=== PATIENT | male | born 1935 | race Caucasian/White ===

== ENCOUNTER 2018-12-24 03:31 | Inpatient (IN) | payer MEDICARE ==
[~2018-12-24] VITALS: Ht 182.9 cm; Wt 83.5 kg
[~2018-12-24 03:31] MED LIST: ASPIR 8181 MG; ATENOLOL100 MG; BICALUTAMIDE50 MG; CIALIS5 MG; COLACE100 MG PO; DALIRESP500 MCG; FLAGYL250 MG PO; GLIMEPIRIDE2 MG PO; LEVAQUIN500 MG PO; LISINOPRIL10 MG PO; NIFEDIPINE ER30 M1; PLAVIX75 MG PO; PROAIR HFA INH8.5 GM; TEMAZEPAM15 MG; ULTRAM50 MG PO
--- OUTSIDE RECORDS SUMMARY | 2018-12-24 03:33 | XMS REPORT | Clinical Summary ---
Author Author ANN [facility] Address Unknown Phone Unavailable Care Team Providers Care Weaving Machine Operator Name Role Phone Sharpless PCP Allergies Comments Active Allergy Reactions Severity Noted Date Neck/throat swelling Sitagliptin Swelling High 01/29/2016 Medications End Date Status Medication Sig Dispensed Refills Start Date Active atenolol (TENORMIN) 100 Take 100 mg 0 MG tablet by mouth daily. Active glimepiride (AMARYL) 2 MG Take 2 mg by 0 tablet mouth every morning before breakfast. Active NIFEdipine (PROCARDIA-XL) Take 90 mg by 0 90 MG (OSM) 24 hr tablet mouth daily. Active atorvastatin (LIPITOR) 40 Take 40 mg by 0 MG tablet mouth daily. Active lisinopril Take 40 mg by 0 (PRINIVIL,ZESTRIL) 40 MG mouth daily. tablet Active temazepam (RESTORIL) 15 Take 15 mg by 0 mg capsule mouth every night as needed for Sleep. Active fluticasone-salmeterol Inhale 1 puff 0 (ADVAIR) 500-50 mcg/dose by mouth via diskus inhaler inhaler 2 (two) times daily. Active albuterol (PROVENTIL) 2.5 Take 2.5 mg 0 mg/0.5 mL Nebu nebulizer by solution nebulization. Active Missing or Non-Formulary Pro aire 0 Medication inhaler 2 puffs as needed . Active esomeprazole (NEXIUM) 40 Take 40 mg by 0 MG capsule mouth daily. Active cyanocobalamin (VITAMIN Inject 1,000 0 B-12) 1,000 mcg/mL mcg injection intramuscular ly once. Active sucralfate (CARAFATE) 1 Take 1 g by 0 gram tablet mouth 4 (four) times daily. Active bicalutamide (CASODEX) 50 Take 50 mg by 0 MG tablet mouth 3 (three) times daily. Active aspirin 325 MG EC tablet Take 325 mg 0 by mouth daily. Active Problems Not on file Social History Date Tobacco Use Types Packs/Day Years Used Former Smoker Comments: >10 yrs ago Alcohol Use Drinks/Week oz/Week Comments Yes 1 Glasses of 0.6 wine Sex Assigned at Date Recorded Not on file Industry Job Start Date Occupation Not on file Not on file Not on file Travel End Travel History Travel Start No recent travel history available. Last Filed Vital Signs Not on file Plan of Treatment Not on file Results Not on fileafter 12/23/2017 Insurance Payer Benefit Subscriber ID Type Phone Address Plan / Group AETNA - MEDICARE MGD CARE AETNA xxxxxxxx [facility] [phone] [address] [place] [address] O POS
[2018-12-24] MEDS ORDERED: VANCOMYCIN 1GM/NS 250 ML 250 ML IV STA (04:23)
[2018-12-24] MEDS ORDERED: ACETAMINOPHEN 1000 MG/100 ML IV STA (04:23)
[2018-12-24] MEDS ORDERED: CEFEPIME 1GM/NS 0.9% 50 ML 50 ML IV STA (04:23)
[2018-12-24] MEDS ORDERED: SODIUM CHLORIDE 0.9% 1000ML 1,000 ML IV STA (04:23)
--- NOTE | 2018-12-24 05:19 | Diagnostic Imaging Report ---
Examination: Single AP view of the chest. COMPARISON: None. INDICATION: Weakness, shaking IMPRESSION: 1. Lines and Tubes: None 2. Lungs are well-inflated. Left basilar atelectatic changes. No consolidation or effusion. 3. Cardiomediastinal silhouette is normal. Pulmonary vasculature is normal. 4. No acute bony abnormalities. Signed by: Dr. Umberto Faith M.D. on 12/24/2018 5:16 AM
[2018-12-24 05:40] LABS: BASOPHILS % 0.5 % (0.0-1.0); EOSINOPHILS # (AUTO) 0.2 (0.0-0.4); EOSINOPHILS % 2.6 % (0.0-6.0); HEMOGLOBIN 11.1 g/dL (14.0-18.0); LYMPHOCYTES # (AUTO) 1.1 (1.0-3.2); LYMPHOCYTES % 12.3 % (18.0-39.1); MEAN CORPUSCULAR HEMOGLOBIN 28.2 pg (28-32); MEAN CORPUSCULAR HGB CONC 32.6 g/dL (31-35); MEAN CORPUSCULAR VOLUME 86.5 fL (81-99); MONOCYTES # (AUTO) 0.7 (0.2-0.8); NEUTROPHILS # (AUTO) 6.6 (2.1-6.9); NEUTROPHILS % 76.3 % (38.7-80.0); PLATELET COUNT 218 x10e3/uL (140-360); RED BLOOD COUNT 3.93 x10e6/uL (4.3-5.7); RED CELL DISTRIBUTION WIDTH 15.9 % (11.7-14.4)
[2018-12-24 06:02] LABS: ALBUMIN 2.8 g/dL (3.5-5.0); ALBUMIN/GLOBULIN RATIO 0.8 (0.8-2.0); ANION GAP 10.5 mmol/L (8-16); CALCIUM 8.5 mg/dL (8.4-10.2); CREATININE, SERUM 1.3 mg/dL (0.72-1.25); POTASSIUM 4.5 mmol/L (3.5-5.1)
[2018-12-24 06:12] LABS: CREATINE KINASE MB 1.3 ng/mL (0-5.0)
[2018-12-24 06:22] LABS: B-TYPE NATRIURETIC PEPTIDE2 190.6 pg/mL (0-100)
[2018-12-24] MEDS ORDERED: SODIUM CHLORIDE 0.9% 1000ML 1,000 ML IV SCH (08:45)
[2018-12-24 08:47] LABS: CLARITY,URINE CLOUDY (CLEAR); COLOR,URINE YELLOW (YELLOW); LEUKOCYTE ESTERASE ,URINE 1+ (NEGATIVE); PROTEIN,URINE DIPSTICK 1+ (NEGATIVE)
[2018-12-24 08:48] LABS: BILIRUBIN,URINE NEGATIVE (NEGATIVE); KETONES,URINE NEGATIVE (NEGATIVE); NITRITE,URINE NEGATIVE (NEGATIVE); URINE UROBILINOGEN 0.2 mg/dL (0.2 - 1)
--- OUTSIDE RECORDS SUMMARY | 2018-12-24 08:52 | XMS REPORT | Clinical Summary ---
Author Author ANN [facility] Address Unknown Phone Unavailable Care Team Providers Care Interactive Media Director Name Role Phone Sharpless PCP Allergies Comments [...] AETNA - MEDICARE MGD CARE AETNA xxxxxxxx [facility] [phone] [address] [place] [address] O POS
--- OUTSIDE RECORDS SUMMARY | 2018-12-24 08:52 | XMS REPORT ---
Author Author [facility] Address Unknown Phone Unavailable Care Team Providers Care Ludlow Machine Operator Name Role Phone Maciej HERNANDEZ Unavailable Unavailable Problems This patient has no known problems. Allergies, Adverse Reactions, Alerts This patient has no known allergies or adverse reactions. Medications This patient has no known medications. Results Test Description Test Time Test Comments Text Results Atomic Results Result Comments CHEST SINGLE (PORTABLE) 2018-12-24 05:15:00 [place] [address] Patient Name: MALIA GONZALEZ MR #: [id number] : 1935 Age/Sex: 83/M Req #: [id number] Adm Physician: Ordered by: TERRANCE HERNANDEZ MD Report #: [id number] Location: ER Room/Bed: Procedure: [id number] DX/CHEST SINGLE (PORTABLE) Exam Date: 12/24/18 Exam Time: 0450 REPORT STATUS: Signed Examination: Single AP view of the chest. COM PARISON: None. INDICATION: Weakness, shaking IMPRESSION: 1. Lines and Tubes: None 2. Lungs are well-inflated. Left basilar atelectatic changes. No consolidation or effusion. 3. Cardiomediastinal silhouette is normal. Pulmonary vasculature is normal. 4. No acute bony abnormalities. Signed by: Dr. Sirena Shook M.D. on 12/24/2018 5:16 AM Dictated By: SIRENA SHOOK MD 5 Transcribed By: GENNA on 12/24/18515 COPY TO: TERRANCE HERNANDEZ MD
[2018-12-24 09:00] LABS: BACTERIA,URINE RARE /HPF; EPITHELIAL CELLS,URINE RARE /LPF; WBC,URINE (MAN) 21-50 /HPF (0-5)
[2018-12-24 09:36] LABS: INFLUENZAE A&B ANTIGEN (RAPID) NEGATIVE (NEGATIVE); STREPTOCOCCUS GRP A ANTIGEN NEGATIVE (NEGATIVE)
[2018-12-24] MEDS ORDERED: ALBUTEROL/IPRATROPIUM 3 ML NEB NEB ONE (09:45)
[2018-12-24] MEDS ORDERED: ALBUTEROL/IPRATROPIUM 3 ML NEB NEB PRN (09:45)
[2018-12-24] MEDS ORDERED: TRAMADOL HCL 50 MG TAB PO PRN ×2 (10:30→12:00)
--- NOTE | 2018-12-24 10:31 | NUR ---
HERE SEEING PT
[2018-12-24] MEDS ORDERED: CEFEPIME 1GM/NS 0.9% 50 ML 50 ML IV SCH (10:45)
[2018-12-24] MEDS: ALBUTEROL/IPRATROPIUM 3 ML NEB NEB SCH ×4 (11:00→23:41)
[2018-12-24] MEDS ORDERED: TEMAZEPAM 15 MG CAP PO PRN (12:00)
[2018-12-24 12:37] VITALS: BP 112/56
[2018-12-24 13:21] VITALS: BP 112/56
--- NOTE | 2018-12-24 15:02 | History and Physical ---
Harley Coley is an 83-year-old male patient, presented to the emergency room with complaints of altered mental status and fever. HISTORY OF PRESENT ILLNESS: Mr. Harley Coley is an 83-year-old male patient with severe comorbidities and he has had frequent hospitalization due underlying cancer and severe COPD. The patient was recently at [facility] [place] with severe COPD and pneumonia. Then, the patient went home and was doing fairly well and subsequently, two days ago, the patient started feeling weak and his mental alertness went down and the patient was having fever of 102 and the patient was evaluated in the emergency room and found to have UTI with urosepsis and altered mental status. 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 The patient also has foot drop. SOCIAL HISTORY: Denies smoking. Denies using alcohol or illic REVIEW OF SYSTEMS: Fever, altered mental status, cough, shortness of breath, weakness, and dizziness. PHYSICAL EXAMINATION: GENERAL: He is elderly male patient, lying in bed, not in any acute distress. VITAL SIGNS: Temperature 102 HEENT: Normocephalic, atraumatic. NECK: No JVD. No lymphadenopathy. LUNGS: Bilateral equal fair entry. Basal rales. HEART: S1 and S2, regular. Systolic murmur present. ABDOMEN: Soft. Bowel sounds are diminished. NEUROLOGIC: No new focal neurological deficit. ADMITTING INPATIENT DIAGNOSES: Urinary tract infection with urosepsis and altered mental status _ blood pressure readings were low. Chronic obstructive pulmonary disease , hyperlipidemia, diabetes mellitus, metastatic prostate cancer, and severe chronic obstructive pulmonary disease. PLAN: The patient will be admitted with above diagnoses. We will give the patient IV antibiotics we will obtain ID consultation and we will obtain the blood cultures. MD GAYLA Piña/REBECCA /[id number] DAVID
[2018-12-24] MEDS: ALBUTEROL SULFATE HFA 8GM INHALATION AEROSOL INH SCH ×3 (15:13→23:41)
[2018-12-24] MEDS ORDERED: ATORVASTATIN CA20 MG PO (15:20)
[2018-12-24] MEDS ORDERED: ASPIRIN325 MG PO (15:20)
[2018-12-24] MEDS ORDERED: PANTOPRAZOLE SO40 MG PO (15:20)
[2018-12-24] MEDS ORDERED: BENADRYL25 M1 PO (15:20)
[2018-12-24] MEDS ORDERED: METFORMIN HCL500 M1 PO (15:20)
[2018-12-24] MEDS ORDERED: ZYRTEC10 M3 PO (15:20)
[2018-12-24] MEDS ORDERED: LOSARTAN POTASS25 MG PO (15:20)
[2018-12-24] MEDS: SODIUM CHLORIDE 0.9% 1000ML 1,000 ML IV SCH ×3 (15:22→21:05)
[2018-12-24 15:23] VITALS: BP 112/56
[2018-12-24 16:20] VITALS: BP 117/56
[2018-12-24] MEDS ORDERED: DOCUSATE SODIUM 100 MG CAP PO SCH (17:00)
[2018-12-24] MEDS: DOCUSATE SODIUM 100 MG CAP PO SCH (17:09)
[2018-12-24] MEDS: CEFEPIME 1GM/NS 0.9% 50 ML 50 ML IV SCH (17:09)
[2018-12-24] MEDS: GLIMEPIRIDE 2 MG TAB PO SCH (17:09)
--- NOTE | 2018-12-24 17:10 | NUR ---
Dr. Ford seeing the patient for Dr. Arjun Lyn. No new orders received.
[2018-12-24 19:53] VITALS: BP 111/58
[2018-12-24] MEDS ORDERED: TEMAZEPAM 15 MG CAP PO SCH (21:00)
[2018-12-24 21:32] VITALS: BP 111/58
[2018-12-25] VITALS (8 sets, daily range): BP systolic 119–140; BP diastolic 58–66
--- NOTE | 2018-12-25 00:35 | Consultation ---
DATE OF CONSULTATION: HISTORY OF PRESENT ILLNESS: The patient was seen and examined. Chart was reviewed. The patient was seen at the request of Dr. Regulo Lyn. The patient is an 83-year-old gentleman, who was admitted to the hospital with increasing shortness of breath. The patient came to the hospital yesterday and he has history of COPD and pneumonia and he started feeling weak. His mental status was down. He had a fever of 102. The patient was started to have urinary tract infection and possibly flu-like symptoms. The patient's called in ambulance and he was brought into the hospital. When he was admitted, he was treated with IV antibiotics and fluids and he feels already quite a bit better now than before. MEDICATIONS: The patient's current medications include cefepime, glimepiride, docusate, albuterol, lisinopril, tramadol, temazepam, atenolol, nifedipine, Casodex, Plavix, aspirin, and DuoNeb. PAST MEDICAL HISTORY: The patient has past medical history significant for COPD, prostate cancer, diabetes mellitus, hypertension, and kidney disease. PAST SURGICAL HISTORY: He has appendectomy, cholecystectomy, and hernia repair before. FAMILY HISTORY: The patient has family history of heart disease in the father and hypertension in the father. Mother also having hypertension, heart disease, and stroke. The patient's siblings have from cancer. He does have 2 brothers and 1 sister. He has number of siblings and children, has had some emphysema and stroke. SOCIAL HISTORY: The patient is . Lives with his . He is a nonsmoker, but did smoke in the past. He is retired at this time. He denies drug abuse. ALLERGIES: THE PATIENT IS ALLERGIC TO JANUVIA, LISINOPRIL, AND JUNIOR INHIBITOR. REVIEW OF SYSTEMS: NEUROLOGICAL: Denies passing out seizures. CARDIAC-GRAHAM: No chest pain. PULMONARY: He has mild shortness of breath, but he is stable. GI: No bleeding per rectum. : No dysuria or hematuria. Now, he has had some urinary tract symptoms before. He is feeling a little better, though he is still somewhat weak. PHYSICAL EXAMINATION: VITAL SIGNS: He is afebrile, pulse 69, respiratory rate 18, and blood pressure 117/56. HEENT: Atraumatic, normocephalic. NECK: Supple. He is on O2 by nasal cannula. CHEST: Clear. HEART: Normal. ABDOMEN: Soft. EXTREMITIES: Showed no cyanosis, clubbing, or edema. NEUROLOGIC: He was alert, awake, calm, and cooperative. LABORATORY DATA: White count was 8.7, hemoglobin 11.1, hematocrit 34.0, and platelet count was 218. The patient's chemistry showed BUN of 15, creatinine 1.3, glucose 200, sodium was 133, albumin was 2.8, and lipase was normal at 6. Urinalysis has 2+ blood, 1+ leuk esterase, 6-10 red blood cells, and 21-50 white blood cells. Serology showed influenza being negative. DIAGNOSTIC STUDIES: In terms of his imaging studies, chest x-ray showed no acute infiltrates. The patient had normal lungs with no consolidation or effusion. So far blood cultures are pending. ASSESSMENT AND PLAN: The patient seems to be doing well and is being treated for urinary tract infection. Pulmonary status seems to be improving as well. Clinically, the patient is improving and pulmonary status remain stable. We will continue current care. I do not have new recommendations at this time from pulmonary standpoint. The patient has been followed by Dr. Regulo Lyn and once we have urine cultures, we can make further recommendations, but for now, we will continue current care without any significant changes. The patient remains on O2. We will wean the O2 as required and continue supportive care. MD HAY Albright/REBECCA /[id number]
[2018-12-25] MEDS: ALBUTEROL/IPRATROPIUM 3 ML NEB NEB SCH ×6 (01:01→23:40)
[2018-12-25] MEDS: ALBUTEROL SULFATE HFA 8GM INHALATION AEROSOL INH SCH ×6 (01:02→22:00)
[2018-12-25] MEDS: SODIUM CHLORIDE 0.9% 1000ML 1,000 ML IV SCH ×3 (04:46→18:49)
[2018-12-25] MEDS: CEFEPIME 1GM/NS 0.9% 50 ML 50 ML IV SCH ×2 (04:46→17:00)
[2018-12-25 05:27] LABS: BASOPHILS % 0.1 % (0.0-1.0); EOSINOPHILS # (AUTO) 0.4 (0.0-0.4); EOSINOPHILS % 5.3 % (0.0-6.0); HEMATOCRIT 28.8 % (38.2-49.6); HEMOGLOBIN 9.3 g/dL (14.0-18.0); LYMPHOCYTES % 13.7 % (18.0-39.1); MEAN CORPUSCULAR HEMOGLOBIN 28.2 pg (28-32); MEAN CORPUSCULAR HGB CONC 32.3 g/dL (31-35); MEAN CORPUSCULAR VOLUME 87.3 fL (81-99); MONOCYTES # (AUTO) 0.7 (0.2-0.8); MONOCYTES % 9.9 % (4.4-11.3); NEUTROPHILS # (AUTO) 4.9 (2.1-6.9); NEUTROPHILS % 70.7 % (38.7-80.0); PLATELET COUNT 170 x10e3/uL (140-360); RED CELL DISTRIBUTION WIDTH 15.7 % (11.7-14.4)
--- NOTE | 2018-12-25 06:00 | NUR ---
PAGED DR. YOUNG REGARDING LISINOPRIL ORDER.
[2018-12-25 06:09] LABS: ALANINE AMINOTRANSFERASE 9 IU/L (0-55); ALBUMIN 2.3 g/dL (3.5-5.0); ALBUMIN/GLOBULIN RATIO 0.7 (0.8-2.0); ALKALINE PHOSPHATASE 52 IU/L (40-150); ANION GAP 10.2 mmol/L (8-16); BLOOD UREA NITROGEN 16 mg/dL (7-26); BUN/CREATININE RATIO 16 (6-25); CARBON DIOXIDE 26 mmol/L (22-29); CHLORIDE 104 mmol/L (98-107); EST GLOMERULAR FILTRATION RATE > 60 ML/MIN (60-); GLUCOSE 103 mg/dL (74-118); POTASSIUM 4.2 mmol/L (3.5-5.1); SODIUM 136 mmol/L (136-145)
[2018-12-25] MEDS ORDERED: LISINOPRIL 10 MG TAB PO SCH (09:00)
[2018-12-25] MEDS ORDERED: ATENOLOL 100 MG TAB PO SCH (09:00)
[2018-12-25] MEDS ORDERED: LISINOPRIL 20 MG TAB PO SCH (09:00)
[2018-12-25] MEDS: BICALUTAMIDE 50 MG TABLET PO SCH (09:01)
[2018-12-25] MEDS: ASPIRIN 81 MG CHEW TAB PO SCH (09:01)
[2018-12-25] MEDS: GLIMEPIRIDE 2 MG TAB PO SCH ×2 (09:01→17:00)
[2018-12-25] MEDS: CLOPIDOGREL BISULFATE 75 MG TAB PO SCH (09:02)
[2018-12-25] MEDS: DOCUSATE SODIUM 100 MG CAP PO SCH ×2 (09:02→17:00)
[2018-12-25] MEDS: NIFEDIPINE CR 30 MG TAB PO SCH (09:02)
[2018-12-25] MEDS: ATENOLOL 50 MG TAB PO SCH (09:03)
[2018-12-25] MEDS: TEMAZEPAM 15 MG CAP PO PRN (21:05)
[2018-12-26] VITALS (8 sets, daily range): BP systolic 125–166; BP diastolic 68–86
[2018-12-26] MEDS: SODIUM CHLORIDE 0.9% 1000ML 1,000 ML IV SCH ×3 (00:30→15:48)
[2018-12-26] MEDS: ALBUTEROL SULFATE HFA 8GM INHALATION AEROSOL INH SCH ×6 (02:00→22:00)
[2018-12-26] MEDS: ALBUTEROL/IPRATROPIUM 3 ML NEB NEB SCH ×6 (04:00→23:17)
[2018-12-26] MEDS: CEFEPIME 1GM/NS 0.9% 50 ML 50 ML IV SCH ×2 (04:40→17:31)
[2018-12-26] MEDS ORDERED: BENADRYL25 M1 PO (06:41)
[2018-12-26] MEDS: BICALUTAMIDE 50 MG TABLET PO SCH (08:23)
[2018-12-26] MEDS: DOCUSATE SODIUM 100 MG CAP PO SCH ×2 (08:23→17:29)
[2018-12-26] MEDS: CLOPIDOGREL BISULFATE 75 MG TAB PO SCH (08:23)
[2018-12-26] MEDS: GLIMEPIRIDE 2 MG TAB PO SCH ×2 (08:23→17:29)
[2018-12-26] MEDS: ASPIRIN 81 MG CHEW TAB PO SCH (08:23)
[2018-12-26] MEDS: ATENOLOL 50 MG TAB PO SCH (08:33)
[2018-12-26] MEDS: NIFEDIPINE CR 30 MG TAB PO SCH (08:33)
[2018-12-26] MEDS: TEMAZEPAM 15 MG CAP PO PRN (21:08)
[2018-12-27] VITALS (7 sets, daily range): BP systolic 134–152; BP diastolic 63–83
[2018-12-27] MEDS: ALBUTEROL SULFATE HFA 8GM INHALATION AEROSOL INH SCH ×6 (02:00→22:00)
[2018-12-27] MEDS: SODIUM CHLORIDE 0.9% 1000ML 1,000 ML IV SCH ×2 (02:45→23:32)
[2018-12-27] MEDS: ALBUTEROL/IPRATROPIUM 3 ML NEB NEB SCH ×6 (03:00→23:00)
[2018-12-27] MEDS: CEFEPIME 1GM/NS 0.9% 50 ML 50 ML IV SCH ×2 (04:13→16:47)
[2018-12-27 06:16] LABS: BASOPHILS % 0.3 % (0.0-1.0); EOSINOPHILS # (AUTO) 0.8 (0.0-0.4); EOSINOPHILS % 10.9 % (0.0-6.0); HEMATOCRIT 33.3 % (38.2-49.6); HEMOGLOBIN 10.8 g/dL (14.0-18.0); LYMPHOCYTES % 14.2 % (18.0-39.1); MEAN CORPUSCULAR HEMOGLOBIN 28.1 pg (28-32); MEAN CORPUSCULAR HGB CONC 32.4 g/dL (31-35); MEAN CORPUSCULAR VOLUME 86.7 fL (81-99); MONOCYTES # (AUTO) 0.7 (0.2-0.8); MONOCYTES % 9.7 % (4.4-11.3); NEUTROPHILS # (AUTO) 4.7 (2.1-6.9); NEUTROPHILS % 64.5 % (38.7-80.0); PLATELET COUNT 245 x10e3/uL (140-360); RED BLOOD COUNT 3.84 x10e6/uL (4.3-5.7); RED CELL DISTRIBUTION WIDTH 15.6 % (11.7-14.4)
[2018-12-27 06:51] LABS: ALANINE AMINOTRANSFERASE 12 IU/L (0-55); ALBUMIN 2.5 g/dL (3.5-5.0); ALBUMIN/GLOBULIN RATIO 0.6 (0.8-2.0); ALKALINE PHOSPHATASE 64 IU/L (40-150); ANION GAP 11.1 mmol/L (8-16); BLOOD UREA NITROGEN 9 mg/dL (7-26); BUN/CREATININE RATIO 10 (6-25); CALCIUM 8.9 mg/dL (8.4-10.2); CARBON DIOXIDE 27 mmol/L (22-29); CHLORIDE 103 mmol/L (98-107); CREATININE, SERUM 0.86 mg/dL (0.72-1.25); EST GLOMERULAR FILTRATION RATE > 60 ML/MIN (60-); GLUCOSE 124 mg/dL (74-118); POTASSIUM 4.1 mmol/L (3.5-5.1); SODIUM 137 mmol/L (136-145)
--- NOTE | 2018-12-27 09:00 | NUR ---
The pt. as received in bed awake and alert. He denies pain or discomfort at this time. The side rails are up times 2 and the bed is in low position.
--- NOTE | 2018-12-27 09:05 | NUR ---
IMM letter delivered and explained to pt. He verbalized understanding. Signed copy placed in chart. Copy placed in pt's transition of care folder.
[2018-12-27] MEDS: NIFEDIPINE CR 30 MG TAB PO SCH (09:29)
[2018-12-27] MEDS: DOCUSATE SODIUM 100 MG CAP PO SCH ×2 (09:29→16:47)
[2018-12-27] MEDS: CLOPIDOGREL BISULFATE 75 MG TAB PO SCH (09:29)
[2018-12-27] MEDS: ASPIRIN 81 MG CHEW TAB PO SCH (09:29)
[2018-12-27] MEDS: GLIMEPIRIDE 2 MG TAB PO SCH ×2 (09:29→16:47)
[2018-12-27] MEDS: ATENOLOL 50 MG TAB PO SCH (09:30)
--- NOTE | 2018-12-27 15:58 | Consultation ---
DATE OF CONSULTATION: 12/27/2018 REASON FOR CONSULTATION: Urosepsis. Thank you Dr. Lyn for asking me to see this patient. HISTORY OF PRESENT ILLNESS: The patient is an 83-year-old man, referred for urosepsis. He presented to the emergency department on 12/24/2018 with shaking chills and fever. Also, he recalls urinary urgency, incontinence, and stated that the thought that he was confused. In the emergency department, he was noted to have temperature of 102.9 degrees Fahrenheit, pulse rate 95, respiratory rate 22, blood pressure 126/55, and oxygen saturation 95% on 2 L of oxygen by nasal cannula. Initial laboratory studies showed blood leukocyte count of 8710 with 76.3% neutrophils, BUN 22, creatinine 1.3, and abnormal urinalysis. Chest x-ray showed no consolidation or effusion. PAST MEDICAL HISTORY: Diabetes mellitus type 2, hypertension, chronic obstructive pulmonary disease, and prostate cancer. PAST SURGICAL HISTORY: Cholecystectomy, abdominal aortic aneurysm repair, appendectomy, back surgery, right hip replacement, knee replacement and drop foot. ALLERGIES: LISINOPRIL. MEDICATIONS: The current antibiotic is Ceftin 1 g piggyback q.12 hours. IMMUNIZATION: The patient received pneumococcal vaccination in the past. FAMILY HISTORY: Noncontributory. SOCIAL HISTORY: He quit smoking cigarettes 10 years ago. Also, he quit drinking alcohol. REVIEW OF SYSTEMS: As per history of present illness. The patient reports improvement since admission and management. The fever subsided and also the urgency and incontinence subsided. He has baseline cough, which did not change. He denies nausea, vomiting, diarrhea, constipation, or abdominal pain. PHYSICAL EXAMINATION: GENERAL: In no acute distress and does not appear toxic. VITAL SIGNS: T-max 99.3, pulse 90, respiratory rate 20, and blood pressure 147/57, weight 184 pounds. HEENT: Normocephalic. There is no icterus or injection of the conjunctivae. There is no ear or nasal discharge. Moist oral mucosa. No pharyngeal erythema or exudate. NECK: Supple. No meningismus. LUNGS: Good air entry bilaterally. HEART: Normal S1 and S2. ABDOMEN: Soft and nontender. There is no costovertebral angle tenderness. EXTREMITIES: There is no edema, clubbing, or cyanosis. SKIN: There is no acute erythema. PRESCHOOL SPECIAL EDUCATION TEACHER: Awake, alert, and oriented to person, place, and time. LABORATORY AND DIAGNOSTICS: WBC 7,320, hemoglobin 10.8, platelets 245,000, neutrophils 64.5, lymphocytes 14.2, monocytes 9.7, eosinophils 10.9, basophils 0.3. BUN 9, creatinine 0.86, blood glucose 140. Blood culture, no growth. Urine cultures, also no growth. IMPRESSION: 1. Resolving sepsis, felt to be urinary tract infection. 2. Chronic obstructive pulmonary disease. 3. Prostate cancer. PLAN: 1. The patient may be switched to oral antibiotics tomorrow in preparation for discharge if he continues to improve. 2. PT as tolerated if not yet done. MD EVELIN Jensen/REBECCA /[id number]
--- NOTE | 2018-12-27 16:12 | NUR ---
SPOKE WITH PATIENT ABOUT REHAB POSSIBILITIES, SIGNED CHOICE FOR [facility], SENT INFORMATION AFTER SPEAKING WITH IMMANUEL. FOUND OUT THAT THIS PT HAS MEDICAID ONLY. SPOKE WITH OUR OP REHAB DEPARTMENT THEY DO NOT TAKE MEDICAID SPOKE WITH [facility] THEY DO NOT. WAS INFORMED THAT FOR THIS POLICY THEY WILL ONLY BE ABLE TO GET HOME HEALTH WITH LIMITED HOME PT TO COME TO HOUSE. WAS NOTIFIED THAT [facility] ARE PROVIDERS FOR THIS POLICY CALLED AND CONFIRMED THEY ARE IN NETWORK, FAXED CLINICALS FOR THEM TO SEE IF CAN GET SET UP FOR SERVICES, WAITING ON CONFIRMATION. WILL NOTIFY CHARO GAMBINO IF CAN MAKE IT HAPPEN.
--- NOTE | 2018-12-27 16:30 | NUR ---
SPOKE WITH [facility] WHOM STATES THAT HOME HEALTH WILL NOT WORK AND SHE ALSO STATES THATTHEY HAVE MEDICARE AMERIVANTAGE. SENT TO [facility] TO SEE WHAT BENEFITS ARE ABLE TO BE RUN.
--- NOTE | 2018-12-27 19:30 | NUR ---
Patient received lying in bed. AAO x 2. Patient had no complaints of pain. No signs of respiratory distress. Fall precautions implemented. Bed locked and in lowest position. Bed rails up x 2. Patient instructed to call for assistance when needed. Call light within reach.
[2018-12-27] MEDS: TEMAZEPAM 15 MG CAP PO PRN (22:56)
[2018-12-28] VITALS (9 sets, daily range): BP systolic 136–155; BP diastolic 64–74
[2018-12-28] MEDS: ALBUTEROL SULFATE HFA 8GM INHALATION AEROSOL INH SCH ×6 (02:00→22:00)
[2018-12-28] MEDS: ALBUTEROL/IPRATROPIUM 3 ML NEB NEB SCH ×6 (03:00→22:45)
[2018-12-28] MEDS: CEFEPIME 1GM/NS 0.9% 50 ML 50 ML IV SCH ×2 (05:06→17:00)
[2018-12-28] MEDS: CLOPIDOGREL BISULFATE 75 MG TAB PO SCH (09:24)
[2018-12-28] MEDS: ASPIRIN 81 MG CHEW TAB PO SCH (09:24)
[2018-12-28] MEDS: DOCUSATE SODIUM 100 MG CAP PO SCH ×2 (09:24→17:00)
[2018-12-28] MEDS: GLIMEPIRIDE 2 MG TAB PO SCH ×2 (09:24→17:00)
[2018-12-28] MEDS: NIFEDIPINE CR 30 MG TAB PO SCH (09:26)
[2018-12-28] MEDS: ATENOLOL 50 MG TAB PO SCH (09:27)
[2018-12-28] MEDS ORDERED: CEFUROXIME250 MG PO (09:39)
[2018-12-28] MEDS ORDERED: METHYLPREDNISOLONE SOD SUCC 40 MG/ML VIAL 1ML IV ONE (10:30)
--- NOTE | 2018-12-28 11:43 | Diagnostic Imaging Report ---
RIGHT ANKLE - 3 Images RIGHT FOOT - 3 Images HISTORY: Weakness, fever, pain COMPARISON: None available. FINDINGS: Bones: Diffusely decreased mineralization of the osseous structures limits bone detail. No acute displaced fracture. No aggressive osseous lesion. Small plantar calcaneal enthesophyte. Joints: Mild claw/hammer toe configuration of multiple toes, correlate with physical exam. Minimal scattered degenerative changes. Soft tissues: The soft tissues appear unremarkable. IMPRESSION: 1. No acute radiographic abnormality. 2. Minimal osteoarthrosis and chronic plantar calcaneal enthesopathy. 3. Osseous demineralization, recommend correlation with bone densitometry. Signed by: Dr. Kiryb Sy D.O., M.M.M. on 12/28/2018 11:40 AM
[2018-12-28] MEDS: COLCHICINE 0.6 MG TAB PO SCH (17:00)
[2018-12-28] MEDS: SODIUM CHLORIDE 0.9% 1000ML 1,000 ML IV SCH ×2 (17:23→23:00)
[2018-12-28] MEDS: TEMAZEPAM 15 MG CAP PO PRN (22:04)
[2018-12-29] VITALS: BP 127/70
[2018-12-29] MEDS: ALBUTEROL SULFATE HFA 8GM INHALATION AEROSOL INH SCH ×3 (02:00→08:50)
[2018-12-29] MEDS: ALBUTEROL/IPRATROPIUM 3 ML NEB NEB SCH ×4 (03:00→11:47)
[2018-12-29 05:00] VITALS: BP 126/70
[2018-12-29] MEDS: CEFEPIME 1GM/NS 0.9% 50 ML 50 ML IV SCH (05:12)
[2018-12-29 05:24] LABS: BASOPHILS % 0.2 % (0.0-1.0); EOSINOPHILS % 0.4 % (0.0-6.0); HEMATOCRIT 30.8 % (38.2-49.6); HEMOGLOBIN 10.2 g/dL (14.0-18.0); LYMPHOCYTES # (AUTO) 0.8 (1.0-3.2); LYMPHOCYTES % 14.4 % (18.0-39.1); MEAN CORPUSCULAR HEMOGLOBIN 28.3 pg (28-32); MEAN CORPUSCULAR HGB CONC 33.1 g/dL (31-35); MEAN CORPUSCULAR VOLUME 85.3 fL (81-99); MONOCYTES # (AUTO) 0.5 (0.2-0.8); NEUTROPHILS # (AUTO) 4.2 (2.1-6.9); NEUTROPHILS % 75.8 % (38.7-80.0); PLATELET COUNT 258 x10e3/uL (140-360); RED BLOOD COUNT 3.61 x10e6/uL (4.3-5.7); RED CELL DISTRIBUTION WIDTH 14.9 % (11.7-14.4)
[2018-12-29 05:53] LABS: ALANINE AMINOTRANSFERASE 11 IU/L (0-55); ALBUMIN 2.3 g/dL (3.5-5.0); ALBUMIN/GLOBULIN RATIO 0.5 (0.8-2.0); ALKALINE PHOSPHATASE 61 IU/L (40-150); BLOOD UREA NITROGEN 17 mg/dL (7-26); BUN/CREATININE RATIO 18 (6-25); CALCIUM 8.7 mg/dL (8.4-10.2); CARBON DIOXIDE 27 mmol/L (22-29); CHLORIDE 100 mmol/L (98-107); CREATININE, SERUM 0.95 mg/dL (0.72-1.25); EST GLOMERULAR FILTRATION RATE > 60 ML/MIN (60-); GLUCOSE 245 mg/dL (74-118); SODIUM 134 mmol/L (136-145)
[2018-12-29 08:00] VITALS: BP 147/70
[2018-12-29 08:02] VITALS: BP 147/70
[2018-12-29] MEDS: ASPIRIN 81 MG CHEW TAB PO SCH (08:38)
[2018-12-29] MEDS: GLIMEPIRIDE 2 MG TAB PO SCH (08:38)
[2018-12-29] MEDS: NIFEDIPINE CR 30 MG TAB PO SCH (08:39)
[2018-12-29] MEDS: COLCHICINE 0.6 MG TAB PO SCH (08:39)
[2018-12-29] MEDS: CLOPIDOGREL BISULFATE 75 MG TAB PO SCH (08:39)
[2018-12-29] MEDS: DOCUSATE SODIUM 100 MG CAP PO SCH (08:39)
[2018-12-29] MEDS: ATENOLOL 50 MG TAB PO SCH (08:40)
--- NOTE | 2018-12-29 10:40 | NUR ---
IMM letter delivered and explained to pt. He verbalized understanding, stated he was ready to go home. Signed copy placed in chart. Copy placed in pt's transition of care folder.
[2018-12-29 11:50] VITALS: BP 163/67
--- NOTE | 2018-12-29 12:28 | NUR ---
SPOKE WITH [facility] TO GET UPDATE ON REFERRAL, WAS TOLD CLINICALLY ACCEPTED THAT IT IS IN BUSINESS ENGLISH INSTRUCTOR HANDS. WAS INFORMED IN ROUNDS THAT PT IS GOING HOME. ALERTED [facility] THEY STATED THAT IF APPROVAL COMES THROUGH THEY WILL ADMIT FROM HOME.
--- NOTE | 2018-12-29 12:45 | NUR ---
PIV removed with tip intact. pt escorted to front lobby entrance via WC. all personal belongings, RX and d/c instructions in hand at time of d/c. transferred into private auto operated by .
--- NOTE | 2018-12-30 06:43 | Discharge Summary ---
HISTORY: Mr. Harley Coley is an 83-year-old male patient, presented with complaint of altered mental status, weakness, UTI, sepsis, and encephalopathy. ADMITTING IMPRESSION AND DIAGNOSES: Urinary tract infection with urosepsis, altered mental status, hypertension, sepsis, encephalopathy, chronic obstructive pulmonary disease, diabetes mellitus, metastatic prostate cancer, and osteoarthritis. HOSPITAL COURSE/SUMMARY: The patient was admitted with above diagnoses. The patient was treated with IV antibiotics cefepime and vancomycin initially was given. The patient was given cefepime. ID consultation and pulmonary consultation were done by Dr. Arjun Lyn. The patient had improved significantly. The patient was clinically septic with it. The patient has a prolonged course antibiotics and the patient was getting physical therapy, occupational therapy, for home safety evaluation for discharge. Then, the patient was having sudden right ankle pain and became bedbound. So, the patient was given IV Solu-Medrol and colchicine. Upon stabilization, the patient will be discharged home on oral antibiotic, CEFUROXIME 500 mg twice a day for 3 days. The patient will also get outpatient therapy. MD GAYLA Piña/MODL /[id number] MTDD
== END 2018-12-29 12:45 | disposition home or self-care (01) | DRG 871 ==
LOC: ER 03:31 → ERHOLD 08:49 → MED/SURG2 11:31
PROVIDERS: ADMIT Internal Medicine; ATTEND Internal Medicine
DX: A41.9 Sepsis, unspecified organism (principal); G93.41 Metabolic encephalopathy; N39.0 Urinary tract infection, site not specified; C79.51 Secondary malignant neoplasm of bone; J44.9 Chronic obstructive pulmonary disease, unspecified; E78.5 Hyperlipidemia, unspecified; E11.9 Type 2 diabetes mellitus without complications; R65.20 Severe sepsis without septic shock; Z85.46 Personal history of malignant neoplasm of prostate; N39.41 Urge incontinence; C61 Malignant neoplasm of prostate
CPT/HCPCS: 36415; 71045; 80053; 81001; 82550; 82553; 82948; 83518; 83605; 83690; 83880; 84484; 84550; 85025; 87040; 87070; 87086; 87400; 94640; 97139; 99285; J0692; J2920; J3370; J7030

== ENCOUNTER 2019-05-30 15:19 | Emergency (ER) | payer MEDICARE ==
[~2019-05-30] VITALS: Ht 182.9 cm; Wt 83.5 kg
[~2019-05-30 15:19] MED LIST changes: +ASPIRIN325 MG PO; -ATENOLOL100 MG; +ATENOLOL100 MG PO; +ATORVASTATIN CA20 MG PO; +BENADRYL25 M1 PO; +CEFUROXIME250 MG PO; +LOSARTAN POTASS25 MG PO; +METFORMIN HCL500 M1 PO; +PANTOPRAZOLE SO40 MG PO; +ZYRTEC10 M3 PO
--- OUTSIDE RECORDS SUMMARY | 2019-05-30 15:21 | XMS REPORT | Clinical Summary ---
Author Author ANN Cellular BioengineeringMadison [facility] HospitalLipocalyxAd[facility] Address Unknown Phone Unavailable Care Team Providers Care Rubber Goods Repairer Name Role Phone Sharpless PCP Allergies Comments [...] Not on file Results Not on fileafter 05/29/2018 Insurance Payer Benefit Subscriber ID Type Phone Address Plan / Group AETNA - MEDICARE MGD CARE AETNA xxxxxxxx [facility] [phone] [address] [place] [address] O POS
[2019-05-30] MEDS ORDERED: SODIUM CHLORIDE 0.9% 1000ML 1,000 ML ONE (15:43)
[2019-05-30 16:19] LABS: BASOPHILS % 0.6 % (0.0-1.0); EOSINOPHILS # (AUTO) 0.5 (0.0-0.4); EOSINOPHILS % 7.7 % (0.0-6.0); HEMATOCRIT 35.1 % (38.2-49.6); HEMOGLOBIN 11.7 g/dL (14.0-18.0); LYMPHOCYTES # (AUTO) 1.5 (1.0-3.2); LYMPHOCYTES % 20.9 % (18.0-39.1); MEAN CORPUSCULAR HEMOGLOBIN 29.1 pg (28-32); MEAN CORPUSCULAR HGB CONC 33.3 g/dL (31-35); MEAN CORPUSCULAR VOLUME 87.3 fL (81-99); MONOCYTES # (AUTO) 0.7 (0.2-0.8); MONOCYTES % 10.5 % (4.4-11.3); NEUTROPHILS # (AUTO) 4.2 (2.1-6.9); PLATELET COUNT 243 x10e3/uL (140-360); RED BLOOD COUNT 4.02 x10e6/uL (4.3-5.7); RED CELL DISTRIBUTION WIDTH 14.4 % (11.7-14.4)
[2019-05-30 16:27] LABS: INR 0.98; PROTHROMBIN TIME 13.5 seconds (11.9-14.5)
[2019-05-30 16:28] LABS: PARTIAL THROMBOPLASTIN TIME 35.1 seconds (23.8-35.5)
[2019-05-30 16:39] LABS: ALBUMIN 3.2 g/dL (3.5-5.0); ALBUMIN/GLOBULIN RATIO 0.9 (0.8-2.0); ANION GAP 12.6 mmol/L (8-16); CALCIUM 9.1 mg/dL (8.4-10.2); CREATININE, SERUM 1.19 mg/dL (0.72-1.25); POTASSIUM 4.6 mmol/L (3.5-5.1)
--- NOTE | 2019-05-30 16:39 | Diagnostic Imaging Report ---
EXAMINATION: Head CT HISTORY: Status post fall, head trauma, confusion COMPARISON: None available TECHNIQUE: Multidetector axial images were obtained without contrast from the foramen magnum to the vertex . The images were reconstructed using brain and bone algorithms. Thin section brain images were reformatted into coronal and sagittal planes. Image quality: Motion/streaking artifact limits the evaluation of the skull base and posterior cranial fossa. Dose modulation, iterative reconstruction, and/or weight based adjustment of the mA/kV was utilized to reduce the radiation dose to as low as reasonably achievable. FINDINGS: Parenchyma: 1. Moderate component periventricular and heard radiata white matter hypodensities, most likely nonspecific chronic hypervascular ischemic changes. 2. No mass or hemorrhage. No CT evidence of acute territorial vascular insult. Extra-axial spaces:No abnormal density. No extra-axial fluid collections Brain volume: Mild brain volume loss with minimal bilateral medial temporal predominance. Ventricles: No hydrocephalus or displacement. Arteries: No density suggestive of thrombus. Dural sinuses: No abnormal density. Extra-axial spaces: No abnormal density. Foramen magnum: No mass, Chiari malformation, or basilar invagination. Sella: No obvious mass. Paranasal/mastoid sinuses: Imaged portions unremarkable. Skull/Scalp: Right vertex scalp swelling/hematoma without underlying fractures. IMPRESSION: 1. Small right vertex scalp swelling/hematoma without underlying fractures or posttraumatic intracranial hemorrhage. 2. Moderate chronic microvascular ischemic changes. Signed by: Dr. Jory Martinez M.D. on 05/30/2019 4:36 PM
--- NOTE | 2019-05-30 17:08 | Diagnostic Imaging Report ---
Right rib multiple views CPT code: 51793 History: Fall, right rib pain Comparison: None. Findings: There are 4 screws at the lateral aspect of the right abdomen, likely outside the patient. Cholecystectomy clips are present. Surgical clips to the left of the upper lumbar spine are present. There is a healing/healed fracture of the anterior right ninth rib. There is suggestion of an acute fracture of the anterior right sixth rib. This is visible on only one image, however. Chest PA single view demonstrates mild hyperinflation without evidence of pleural effusion or pneumothorax.. Mild degenerative changes of the shoulders. There is a bone island in the neck of the right humerus. IMPRESSION: Nondisplaced fracture of the anterior right sixth rib. Healing/healed fracture of the right ninth rib, anterior aspect. No pleural or pulmonary injury. Signed by: Dr. Monse Joaquin MD on 05/30/2019 5:05 PM
[2019-05-30 17:21] LABS: BILIRUBIN,URINE NEGATIVE (NEGATIVE); CLARITY,URINE SL CLOUDY (CLEAR); COLOR,URINE YELLOW (YELLOW); KETONES,URINE NEGATIVE (NEGATIVE); LEUKOCYTE ESTERASE ,URINE SMALL (NEGATIVE); NITRITE,URINE NEGATIVE (NEGATIVE); PROTEIN,URINE DIPSTICK NEGATIVE (NEGATIVE); URINE UROBILINOGEN 0.2 mg/dL (0.2 - 1)
[2019-05-30 17:38] LABS: BACTERIA,URINE FEW /HPF; EPITHELIAL CELLS,URINE RARE /LPF; RBC,URINE 0-5 /HPF (0-5); WBC,URINE (MAN) 0-5 /HPF (0-5)
[2019-05-30 18:14] VITALS: BP 150/61
== END 2019-05-30 18:15 | disposition home or self-care (01) ==
LOC: ER 15:19
DX: S22.31XA Fracture of one rib, right side, initial encounter for closed fracture (principal); S50.811A Abrasion of right forearm, initial encounter; W01.0XXA Fall on same level from slipping, tripping and stumbling without subsequent striking against object, initial encounter; Y92.008 Other place in unspecified non-institutional (private) residence as the place of occurrence of the external cause; N30.91 Cystitis, unspecified with hematuria; I10 Essential (primary) hypertension; E11.9 Type 2 diabetes mellitus without complications; M21.371 Foot drop, right foot; J44.9 Chronic obstructive pulmonary disease, unspecified; N28.9 Disorder of kidney and ureter, unspecified
CPT/HCPCS: 36415; 70450; 71101; 80053; 81001; 82550; 82553; 82948; 84484; 85025; 85610; 85730; 93005; 99284; J7030

== ENCOUNTER 2019-06-03 13:24 | Inpatient (IN) | payer MEDICARE ==
[~2019-06-03] VITALS: Ht 210.8 cm; Wt 83.5 kg
--- OUTSIDE RECORDS SUMMARY | 2019-06-03 13:27 | XMS REPORT | Clinical Summary ---
Author Author ANN [facility] CenterClarimedix[facility] Address Unknown Phone Unavailable Care Team Providers Care Touch Up Painter Name Role Phone Sharpless PCP Allergies Comments [...] Not on file Results Not on fileafter 06/02/2018 Insurance Payer Benefit Subscriber ID Type Phone Address Plan / Group AETNA - MEDICARE MGD CARE AETNA xxxxxxxx [facility] [phone] [address] [place] [address] O POS
[2019-06-03 14:47] LABS: BILIRUBIN,URINE NEGATIVE (NEGATIVE); CLARITY,URINE SL CLOUDY (CLEAR); COLOR,URINE YELLOW (YELLOW); KETONES,URINE NEGATIVE (NEGATIVE); LEUKOCYTE ESTERASE ,URINE LARGE (NEGATIVE); NITRITE,URINE NEGATIVE (NEGATIVE); PROTEIN,URINE DIPSTICK NEGATIVE (NEGATIVE); URINE UROBILINOGEN 0.2 mg/dL (0.2 - 1)
[2019-06-03 14:58] LABS: AMORPHOUS SEDIMENT,URINE MODERATE (FEW); BACTERIA,URINE MODERATE /HPF; RBC,URINE 0-5 /HPF (0-5)
[2019-06-03] MEDS ORDERED: MEROPENEM 1GRAM 1 GM in SODIUM CHLORIDE 0.9% 100 ML 100 ML IV SCH (15:30)
[2019-06-03] MEDS ORDERED: SODIUM CHLORIDE 0.9% 500ML 500 ML IV ONE (15:30)
[2019-06-03 15:38] LABS: BASOPHILS % 0.7 % (0.0-1.0); EOSINOPHILS # (AUTO) 0.4 (0.0-0.4); EOSINOPHILS % 5.7 % (0.0-6.0); HEMATOCRIT 35.6 % (38.2-49.6); HEMOGLOBIN 11.8 g/dL (14.0-18.0); LYMPHOCYTES # (AUTO) 1.2 (1.0-3.2); LYMPHOCYTES % 19.7 % (18.0-39.1); MEAN CORPUSCULAR HEMOGLOBIN 28.9 pg (28-32); MEAN CORPUSCULAR HGB CONC 33.1 g/dL (31-35); MONOCYTES # (AUTO) 0.7 (0.2-0.8); MONOCYTES % 11.2 % (4.4-11.3); NEUTROPHILS # (AUTO) 3.8 (2.1-6.9); NEUTROPHILS % 62.4 % (38.7-80.0); PLATELET COUNT 252 x10e3/uL (140-360); RED BLOOD COUNT 4.09 x10e6/uL (4.3-5.7); RED CELL DISTRIBUTION WIDTH 14.5 % (11.7-14.4)
[2019-06-03] MEDS ORDERED: DEXTROSE 50% SYRINGE 50 ML IV PRN (15:45)
[2019-06-03] MEDS ORDERED: SODIUM CHLORIDE 0.9% 1000ML 1,000 ML IV ONE (15:45)
[2019-06-03] MEDS ORDERED: ONDANSETRON HCL INJ 2MG/ML 2ML 2 MG/ML VIAL IV PRN (15:45)
[2019-06-03 15:47] LABS: INR 0.96; PROTHROMBIN TIME 13.3 seconds (11.9-14.5)
[2019-06-03 15:55] LABS: ALBUMIN 3.4 g/dL (3.5-5.0); ALBUMIN/GLOBULIN RATIO 0.9 (0.8-2.0); ANION GAP 15.3 mmol/L (8-16); CALCIUM 9.4 mg/dL (8.4-10.2); CREATININE, SERUM 1.33 mg/dL (0.72-1.25); MAGNESIUM 1.9 MG/DL (1.3-2.1); POTASSIUM 4.3 mmol/L (3.5-5.1)
[2019-06-03 16:01] LABS: CREATINE KINASE MB 1.4 ng/mL (0-5.0)
[2019-06-03] MEDS: MEROPENEM 1GM 100 ML IV SCH ×2 (16:03)
--- NOTE | 2019-06-03 16:29 | Diagnostic Imaging Report ---
History:Altered mental status, disoriented, history of UTI. Comparison studies: CT head 05/30/2019 Technique: Axial images were obtained from the skull base to the vertex. Coronal and sagittal images reconstructed from the axial data. Dose modulation, iterative reconstruction, and/or weight based adjustment of the mA/kV was utilized to reduce the radiation dose to as low as reasonably achievable. Intravenous contrast: None Findings: Scalp/skull: Minimal subcutaneous soft tissue thickening in the posterior parietal scalp near the vertex possibly represents scar. No acute abnormality. Extra-axial spaces: No masses. No fluid collections. Brain sulci: Mildly prominent. Ventricles: Moderate compensatory dilatation. No acute hydrocephalus. Parenchyma: Moderate confluent hypodensities in the supratentorial white matter are small vessel ischemic changes. No masses, hemorrhage, acute or chronic cortical vascular insults. Sellar/suprasellar region: No abnormalities. Craniocervical junction: Patent foramen magnum. No Chiari one malformation. Incidental findings: Atherosclerotic calcifications in the carotid siphons . Impression: No acute abnormalities. Chronic findings: 1. Generalized age-related cerebral volume loss. 2. Moderate supratentorial white matter small vessel ischemic changes. A preliminary report was given by Neuroradiology fellow Dr. Jamil at 4:29 PM on 06/03/2019. I have reviewed the images and agree with findings in the preliminary report. Signed by: Dr. Yue Knight M.D. on 06/03/2019 8:42 PM
[2019-06-03] MEDS: INSULIN LISPRO 100 UNIT/1 ML 3ML VIAL SQ SCH ×2 (17:30→21:00)
--- OUTSIDE RECORDS SUMMARY | 2019-06-03 17:41 | XMS REPORT | Clinical Summary ---
Author Author [facility] Address Unknown Phone Unavailable Care Team Providers Care Corporate Compliance Manager Name Role Phone Sharpless PCP Allergies Comments [...] AETNA - MEDICARE MGD CARE AETNA xxxxxxxx [facility] [phone] [address] [place] [address] O POS
--- NOTE | 2019-06-03 18:25 | NUR ---
Received patient from ER, alert able to make needs known but altered mental status, VSS and admitted for UTI and AMS. Pivot transfer to bed and bed alarms in place, Blood sugar at 1710 was 101, offered dinner tray, call light within reach, patient's in the room with him for the moment. Will monitor.
[2019-06-03 18:31] VITALS: BP 147/62
[2019-06-03 20:00] VITALS: BP 147/62
--- NOTE | 2019-06-03 20:00 | NUR ---
Patient received lying in bed. AAO x 3. Admission history obtained. Initial physical assessment performed. Patient had no complaints of pain. No signs of respiratory distress. Patient oriented to room, call light and plan of care. Bed locked and in lowest position. Bed alarm activated. Patient instructed to call for assistance when needed. Call light within reach.
[2019-06-03 21:00] VITALS: BP 147/62
--- NOTE | 2019-06-03 22:00 | NUR ---
Patient pulled out IV on right arm with tip intact. New IV inserted in Right upper arm 20G. Will continue to monitor patient.
[2019-06-04] VITALS (9 sets, daily range): BP systolic 122–193; BP diastolic 58–68
[2019-06-04] MEDS ORDERED: SERTRALINE HCL50 MG PO (00:08)
[2019-06-04] MEDS ORDERED: TRELEGY ELLIPTA IH (00:08)
--- NOTE | 2019-06-04 00:23 | NUR ---
Patient's BP elevated (193/63). Dr. Kathe Lyn paged. Awaiting call back.
[2019-06-04 00:58] LABS: CREATINE KINASE MB 1.6 ng/mL (0-5.0)
--- NOTE | 2019-06-04 01:07 | NUR ---
Dr. Kathe Lyn called back with an order for Clonidine 0.1 mg PO x 1 for elevated BP.
[2019-06-04] MEDS ORDERED: CLONIDINE HCL 0.1 MG TAB PO ONE (01:15)
[2019-06-04 05:27] LABS: BASOPHILS % 0.7 % (0.0-1.0); EOSINOPHILS # (AUTO) 0.4 (0.0-0.4); EOSINOPHILS % 7.2 % (0.0-6.0); HEMATOCRIT 34.1 % (38.2-49.6); HEMOGLOBIN 11.3 g/dL (14.0-18.0); LYMPHOCYTES # (AUTO) 1.5 (1.0-3.2); LYMPHOCYTES % 25.2 % (18.0-39.1); MEAN CORPUSCULAR HEMOGLOBIN 28.9 pg (28-32); MEAN CORPUSCULAR HGB CONC 33.1 g/dL (31-35); MEAN CORPUSCULAR VOLUME 87.2 fL (81-99); MONOCYTES # (AUTO) 0.6 (0.2-0.8); MONOCYTES % 10.8 % (4.4-11.3); NEUTROPHILS # (AUTO) 3.3 (2.1-6.9); NEUTROPHILS % 55.8 % (38.7-80.0); PLATELET COUNT 213 x10e3/uL (140-360); RED BLOOD COUNT 3.91 x10e6/uL (4.3-5.7); RED CELL DISTRIBUTION WIDTH 14.4 % (11.7-14.4)
[2019-06-04 05:46] LABS: ALANINE AMINOTRANSFERASE 6 IU/L (0-55); ALKALINE PHOSPHATASE 71 IU/L (40-150); ANION GAP 13.4 mmol/L (8-16); BLOOD UREA NITROGEN 21 mg/dL (7-26); BUN/CREATININE RATIO 20 (6-25); CARBON DIOXIDE 27 mmol/L (22-29); CHLORIDE 105 mmol/L (98-107); CREATININE, SERUM 1.05 mg/dL (0.72-1.25); EST GLOMERULAR FILTRATION RATE > 60 ML/MIN (60-); GLUCOSE 123 mg/dL (74-118); POTASSIUM 4.4 mmol/L (3.5-5.1); SODIUM 141 mmol/L (136-145)
[2019-06-04 06:05] LABS: CREATINE KINASE MB 1.4 ng/mL (0-5.0)
--- NOTE | 2019-06-04 07:00 | NUR ---
Walking rounds done. Shift report given to oncoming nurse.
[2019-06-04] MEDS: MEROPENEM 1GM 100 ML IV SCH ×3 (07:30→23:38)
[2019-06-04] MEDS: INSULIN LISPRO 100 UNIT/1 ML 3ML VIAL SQ SCH ×4 (07:30→20:20)
--- NOTE | 2019-06-04 07:40 | NUR ---
Received patient this morning, alert and responsive, in bed, no agitation, IV line in place, and call light within reach, bed alarms in place, will monitor.
[2019-06-04] MEDS ORDERED: ALBUTEROL/IPRATROPIUM 3 ML NEB NEB PRN (09:15)
--- NOTE | 2019-06-04 09:43 | Diagnostic Imaging Report ---
A single frontal view of the chest. HISTORY: UTI, altered mental status, COPD, shortness of breath COMPARISON: Chest radiograph from a rib series May 30, 2019 and December 24, 2018 DISCUSSION: Portable technique, limits sensitivity of the exam. Soft tissue attenuation partially limits sensitivity of the exam. Overlying tubing. Tubes/Lines: None Lungs and pleura: Persistent hyperinflation of the mid to upper lungs with associated mild bibasilar atelectasis. No evidence of a consolidative pneumonia or pulmonary alveolar edema. No definite pleural effusion or pneumothorax is identified. Heart and mediastinum: The cardiomediastinal silhouette appear(s) unremarkable. Bones and soft tissues: Appear unremarkable, given this limited exam. IMPRESSION: 1. Findings compatible with COPD with hyperinflation and associated bibasilar atelectasis. 2. No consolidative pneumonia. Signed by: Dr. Kirby Sy D.O., M.M.M. on 06/04/2019 9:39 AM
--- NOTE | 2019-06-04 10:48 | NUR ---
Rounds by Dr. Senior covering for Dr. 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 Orders to restart plavix and cancel COPD consult to Dr. Lyn due to unavailability and to consult Dr. Miller. Called at this time.
--- NOTE | 2019-06-04 15:28 | Consultation ---
DATE OF CONSULTATION: REASON FOR CONSULTATION: Concerned about urinary tract infection and sepsis. HISTORY OF PRESENT ILLNESS: This patient, who is a very pleasant 83-year-old, who is currently confused, does not provide meaningful information. He comes here because not feeling well for a week or so. PAST MEDICAL HISTORY: The patient, who does have history of hypertension, diabetes mellitus, chronic obstructive pulmonary disease, hyperlipidemia, and history of chronic kidney disease. PAST SURGICAL HISTORY: Cholecystectomy, appendectomy, hip replacement, and back surgery. ALLERGIES: NKA. SOCIAL HISTORY: There is no smoking, drug abuse, or alcohol abuse. FAMILY HISTORY: Otherwise, noncontributory. REVIEW OF SYSTEMS: GENERAL: At the present time, the patient is lying in bed. He is not feeling well. HEENT: There is no headache, visual changes, hearing changes. GI: There is no nausea. No vomiting. No diarrhea. CARDIAC: There is no arrhythmia. : There is some severe discomfort. NEURO: No seizure activity. He has been having some problem with the urine according to him. The patient was sent for altered mental status, he will be seen by Neurology service. I did discuss his case with Dr. Haines. The patient was recently here with urosepsis back in December. The patient was started on meropenem. He is currently on insulin and Cozaar. IMPRESSION: 1. Sepsis, on admission, urinary tract infection. 2. Altered mental status, secondary to urinary tract infection. 3. Diabetes. Agree with meropenem for the time being, await urine culture sensitivity. We will modify after the culture and sensitivity. 4. Debility. 5. We will follow. MD ANGELITO Greenberg/REBECCA /[id number]
--- NOTE | 2019-06-04 15:58 | History and Physical ---
CHIEF COMPLAINT: The patient had increased confusion for the last few days. HISTORY OF PRESENT ILLNESS: The patient is poor historian, hence history with the help of medical records and information from PCP, Dr. Regulo Lyn. Apparently, the patient was getting more confused for the last few days. The patient was seen by PCP, Dr. Regulo Lyn in his office yesterday and sent to [facility] ER for further management and treatment for increased confusion and possible UTI. In the emergency room, the patient was seen by emergency room doctor and admitted for encephalopathy and UTI for further workup and treatment. At present, the patient is lying comfortably in bed, in no apparent distress. No chest pain. No shortness of breath. No nausea, vomiting, or diarrhea. No abdominal pain. No loss of consciousness or palpitations. No headaches. No hematemesis. No melena. No hematuria or dysuria. No fever. No cough. No witnessed seizures. PAST MEDICAL HISTORY: 1. Metastatic prostate cancer. 2. Diabetes mellitus type 2. 3. Hypertension. 4. Severe COPD. 5. Hypertension. 6. Osteoarthritis. MEDICATIONS: As listed in chart. PAST SURGICAL HISTORY: 1. Appendectomy. 2. Cholecystectomy. 3. Hernia repair. FAMILY HISTORY: Father has had hypertension and heart disease. SOCIAL HISTORY: The patient is , lives with his . Former smoker. Retired. No alcohol. No illicit drug use. ALLERGIES: THE PATIENT IS ALLERGIC TO JANUVIA, LISINOPRIL, AND SHELLFISH. REVIEW OF SYSTEMS: As per HPI. PHYSICAL EXAMINATION: GENERAL: The patient is alert, awake, oriented x2, in no apparent distress, lying in bed. VITAL SIGNS: Temperature is 97, pulse is 62 per minute, respiratory rate 16 per minute, blood pressure is 125/70, and saturation is 98% on 2 L oxygen. SKIN: No cyanosis. No icterus. No pallor. HEENT: Normocephalic, atraumatic. PERRLA plus. NECK: Soft, supple. No JVD. No carotid bruit. No lymphadenopathy. LUNGS: Air entry bilaterally decreased. HEART: S1, S2 present. No murmur, gallop, or rub. ABDOMEN: Soft, nontender. Bowel sounds plus. BLUEPRINT REPRODUCER: Alert, awake, and oriented x2. EXTREMITIES: Moves extremities. Obeys verbal commands. LABORATORY DATA: This morning, white count 5.8, hemoglobin 11.3, hematocrit 34.1, and platelets 213. Sodium 141, potassium 4.4, chloride 105, bicarb 27, BUN 21, creatinine 1.05, and glucose 123. LFTs noted. Urine shows wbc's down to 20, leuko esterase large, bacteria moderate. RADIOGRAPHIC DATA: CT of head shows no acute abnormalities. Chronic findings of generalized age-related cerebral volume loss. Moderate supratentorial white matter small vessel ischemic changes. ASSESSMENT: 1. Metabolic encephalopathy. 2. Urinary tract infection. 3. History of metastatic CA of prostate. 4. Severe chronic obstructive pulmonary disease. 5. Diabetes mellitus. 6. Hypertension. PLAN: Admit the patient to medical floor. The patient started on IV meropenem, pancultures, oxy and neb treatments. ID consultation Dr. Pablo. Neurology consultation Dr. Paula Haines. Pulmonary consultation, Dr. Layton Lyn. DVT and stress prophylaxis. Further care and treatment as per clinical course of the patient in the hospital. I will try to contact the Magaly on phone, but unable to do it. MD LINDSAY Ludwig/MODL /[id number]
[2019-06-04] MEDS: ENOXAPARIN SOD INJ 40 MG/0.4 ML SYR SC SCH (17:00)
--- NOTE | 2019-06-04 18:23 | Consultation ---
DATE OF CONSULTATION: Pulmonary Consultation REASON FOR CONSULTATION: History of COPD. HISTORY OF PRESENT ILLNESS: Mr. Souza is an 83-year-old male. He presented to the emergency room with confusion overnight. The patient has a history of COPD, uses Trilogy at home. He smoked for 50 plus years, quit 20 years ago. He denies any complaints of chest pain. His breathing is stable for now. He denies any nausea or vomiting. REVIEW OF SYSTEMS: GENERAL: Denies any fever or chills. HEAD: Denies any head trauma. ENT: Denies any earaches. CVS: Denies any chest pain. RESPIRATORY: Shortness of breath at near baseline. The rest of the review of systems are negative except as in HPI. PAST MEDICAL AND SURGICAL HISTORY: Hypertension, cholecystectomy, appendectomy, knee replacement, hip replacement, AAA repair, and laminectomy. FAMILY AND SOCIAL HISTORY: Ex-smoker, quit 20 years ago, smoked for 50 plus years. Denies any alcohol use. PHYSICAL EXAMINATION: VITAL SIGNS: Temperature 96.8, pulse of 60, blood pressure 123/61, respiratory rate of 18, and O2 saturation 97% on 2 L. HEENT: Head is atraumatic and normocephalic. NECK: Supple. CHEST: No wheezing. No crackles. Prolonged expiratory phase. HEART: S1 and S2 audible. ABDOMEN: Soft. EXTREMITIES: No pedal edema. NEUROLOGIC: Awake and alert. LABORATORY DATA: White count of 5000, hemoglobin 11.3, and platelets 213. Chemistry is within normal limits. Chest x-ray, I have reviewed the images. Not showing any focal infiltrate, some atelectasis. ASSESSMENT/PLAN: Mr. Souza has a history of chronic obstructive pulmonary disease, admitted with confusion. Currently, respiratory status seemed to be stable. RECOMMENDATIONS: Continue the patient on nebulizers as ordered and budesonide b.i.d. Oxygen as needed to keep the O2 saturation more than or equal to 92%. Thank you for this consult. MD JOHANNY Eckert/REBECCA /[id number]
--- NOTE | 2019-06-04 18:28 | Consultation ---
DATE OF CONSULTATION: 06/04/2019 Neurology Consult Note HISTORY OF PRESENT ILLNESS: Unfortunately, the patient is encephalopathic. There are no family members available at bedside to provide additional history. History is obtained from review of the electronic medical record. Mr. Souza was brought to the emergency center at [facility] on June 03, 2019, with a 1-week history of progressively worsening confusion. The confusion was reportedly constant, but waxed and waned in severity. According to Mr. Sozua, he was disoriented to person, place, time, and situation. Other symptoms endorsed by the patient include urinary frequency and urgency. Mr. Souza does not report fever, chills, shortness of breath, productive cough, abdominal pain, nausea, vomiting, diarrhea, or decreased oral intake associated with confusion. Upon arrival in the emergency center at [facility], Mr. Souza was afebrile with a blood pressure 123/59 mmHg and a pulse of 65 beats per minute. His neurological examination was documented as being nonfocal. Routine blood and urine studies revealed evidence of an acute kidney injury as well as urinary tract infection. Mr. Souza was subsequently admitted as an inpatient to [facility] for further evaluation and treatment of his symptoms. According to the patient's nurse, his confusion is gradually improving. REVIEW OF SYSTEMS: Confusion, urinary frequency, urinary urgency. Otherwise, a 12-point review of systems is negative. PAST MEDICAL HISTORY: Hypertension, hyperlipidemia, diabetes mellitus type 2, chronic obstructive pulmonary disease, depression/anxiety disorder, and chronic pain. PAST SURGICAL HISTORY: Multiple orthopedic procedures, cholecystectomy, appendectomy, prostatectomy, and abdominal aortic aneurysm repair. FAMILY MEDICAL HISTORY: There is no documented significant family medical history. Per the patient, there is no significant family medical history. SOCIAL HISTORY: Mr. Souza is . He is retired. There is no reported current tobacco, alcohol, or recreational drug use. HOME MEDICATIONS: Reviewed. Please see the list of home medications available in the electronic medical record. HOSPITAL MEDICATIONS: Reviewed. Please see the list of hospital medications available in the electronic medical record. ALLERGIES: LISINOPRIL, SITAGLIPTIN. SHELLFISH. NO KNOWN ALLERGIES TO LATEX. NO DOCUMENTED ALLERGY TO IODINE OR OTHER CONTRAST MATERIALS. PHYSICAL EXAMINATION: VITAL SIGNS: Height 73 inches, weight 184 pounds, BMI 24.7 kg/m2, blood pressure 125/67 mmHg, pulse 62 beats per minute, respiratory rate 18 breaths per minute, and oxygen saturation 94% on 2 L by nasal cannula. GENERAL: The patient is awake and alert, does not appear distressed. Normal body habitus. HEENT: Normocephalic, atraumatic. Pupils are surgical. Moist mucous membranes. NECK: Supple. No appreciable thyromegaly. No appreciable carotid bruits. CARDIOVASCULAR: S1, S2, regular rate and rhythm. No murmurs, rubs, or gallops. RESPIRATORY: Clear to auscultation bilaterally. No wheezes, rhonchi, or rales. EXTREMITIES: The skin is warm and dry. No clubbing, cyanosis, or edema. The posterior tibial and dorsalis pedis pulses are 1+ and symmetric. SKIN: No rashes or lesions. NEUROLOGIC: Memory/Attention: The patient is awake and alert, oriented to person only, and minimally to situation. Cranial Nerves: Cranial nerve 1 - not tested. Cranial nerve 2, 3, 4, and 6 - the pupils are surgical. Extraocular movements are intact. No nystagmus. Cranial nerve 5 - sensation is intact to light touch in the bilateral V1 through V3 distributions. Strength in the temporalis and masseter muscles are within normal limits. Cranial nerve 7 - the face is symmetric as are all facial movements. Strength is within normal limits. Cranial nerve 8 - hearing is diminished to finger rub bilaterally. Cranial nerve 9, 10 - the soft palate elevates equally and symmetrically. Cranial nerve 11 - normal strength of the bilateral sternocleidomastoid and trapezius muscles. Cranial nerve 12 - the tongue protrudes midline and moves symmetrically from [id number]. Strength: Bulk is normal. Strength is 5/5 in the bilateral deltoids, biceps, triceps, wrist flexors and extensors, finger flexors and extensors, intrinsic hand muscles, hip flexors, knee flexors and extensors, ankle dorsiflexion and plantar flexion, and intrinsic foot muscles. Tone is normal. The only exception to the aforementioned as follows: The patient has a right foot drop, which is chronic. DTRs: Deep tendon reflexes are 1+ and symmetric at the triceps, biceps, brachioradialis, and patellas. Deep tendon reflexes are absent and symmetric at the Achilles. Plantar responses are flexor bilaterally. Sensation: Sensation is intact to light touch in both arms and both legs. Cerebellar: Unable to assess secondary to the patient being unable to follow instructions for performing [id number] and heel-harris movements. Gait: Deferred. Speech: Spontaneous speech is normal without appreciable dysarthria or aphasia. Repetition is intact. Involuntary movements: None. Pronator Drift: None. LABORATORY DATA: A comprehensive metabolic panel is significant only for an elevated serum glucose of 123, total protein is 6.1, and total protein is 3. Cardiac enzymes are negative. The CBC with diff and platelets reveals a white blood cell count of 5.84 with 55.8% neutrophils, 25.2% lymphocytes, 10.8% monocytes, 7.2% eosinophils, and 0.7% basophils. Hemoglobin and hematocrit are 11.3 and 34.1, respectively. The platelet count is 213. The coagulation profile is within normal limits. Urinalysis revealed slightly cloudy urine with trace blood, large leukocyte esterase, 11-20 white blood cells, moderate amorphous sediment, and moderate urine bacteria. Urine culture collected on June 03, 2019, reveals no growth at 18 to 24 hours. Blood cultures collected on June 03, 2019, are pending. DIAGNOSTIC STUDIES: A CT of the brain without contrast 06/03/2019: On my review, there is no evidence of recent large territorial ischemia, hemorrhage, mass, or mass effect. There is diffuse cerebral atrophy, appropriate for the patient's age. Their findings compatible with moderate chronic small vessel ischemic disease. Chest x-ray: Findings compatible with chronic obstructive pulmonary disease. ASSESSMENT AND PLAN: Mr. Souza is an 83-year-old right-hand dominant man admitted to [facility] on June 03, 2019, with a 1-week history of progressively worsening confusion, urinary frequency, and urinary urgency. At present, other than disorientation to place and time, the patient's neurological examination is nonfocal. His laboratory data and other diagnostic studies have been reviewed and are documented above. Mr. Souza has a metabolic encephalopathy secondary to a urinary tract infection as well as acute kidney injury. Continued treatment of the aforementioned is recommended. There are no other recommendations from the Neurology Service at this time. Please call again with any questions or concerns. Paula Zaki, MD CP/REBECCA /[id number]
--- NOTE | 2019-06-04 18:40 | NUR ---
Patient has been stable, mentation getting clearer and more coherent, cooperative with staff, tolerated all IV abv and IV fluid infusion. Able to call for assistance when needed, in bed, call light within reach, will monitor.
[2019-06-04] MEDS: BUDESONIDE/FORMOTEROL 160/4.5MCG INHALER INH SCH (18:45)
--- NOTE | 2019-06-04 19:00 | NUR ---
RECEIVED PATIENT IN BEDSIDE REPORT. PATIENT IS RESTING IN BED AT THIS TIME. NO PAIN REPORTED. NO S&S OF DISTRESS NOTED. BED LOCKED IN LOWEST POSITION, SIDE RAILS UPX2, CALL LIGHT IN REACH.
[2019-06-05] VITALS (8 sets, daily range): BP systolic 105–169; BP diastolic 55–72
[2019-06-05 06:23] LABS: ANION GAP 11.2 mmol/L (8-16); BLOOD UREA NITROGEN 18 mg/dL (7-26); BUN/CREATININE RATIO 19 (6-25); CALCIUM 9.1 mg/dL (8.4-10.2); CARBON DIOXIDE 27 mmol/L (22-29); CHLORIDE 104 mmol/L (98-107); CREATININE, SERUM 0.94 mg/dL (0.72-1.25); EST GLOMERULAR FILTRATION RATE > 60 ML/MIN (60-); GLUCOSE 119 mg/dL (74-118); POTASSIUM 4.2 mmol/L (3.5-5.1); SODIUM 138 mmol/L (136-145)
[2019-06-05] MEDS: BUDESONIDE/FORMOTEROL 160/4.5MCG INHALER INH SCH ×2 (07:00→19:38)
[2019-06-05] MEDS: MEROPENEM 1GM 100 ML IV SCH ×3 (07:30→23:48)
[2019-06-05] MEDS: INSULIN LISPRO 100 UNIT/1 ML 3ML VIAL SQ SCH ×4 (07:30→20:50)
[2019-06-05] MEDS: CLOPIDOGREL BISULFATE 75 MG TAB PO SCH (08:42)
[2019-06-05] MEDS ORDERED: LOSARTAN POTASSIUM 100 MG TAB PO SCH (09:00)
--- NOTE | 2019-06-05 11:25 | NUR ---
Patient assisted OOB and ambulated about 100 feet, unsteady using R/W, some dizziness but gradually recovered with pacing. Later assisted to bathroom for shower and some nausea, medicated as ordered. Now sitting on recliner, no vomiting noted. Call light within reach, will monitor.
[2019-06-05] MEDS: ENOXAPARIN SOD INJ 40 MG/0.4 ML SYR SC SCH (16:24)
--- NOTE | 2019-06-05 17:12 | NUR ---
Patient alert and responsive, assisted back to bed from recliner, refused lunch and dinner from hospital but brought him food from home, appetite good, no N/V, call light within reach, will monitor.
--- NOTE | 2019-06-05 19:00 | NUR ---
RECEIVED PATIENT IN BEDSIDE REPORT. PATIENT RESTING IN BED AT THIS TIME. NO PAIN REPORTED. NO S&S OF DISTRESS NOTED. BED LOCKED IN LOWEST POSITION, SIDE RAILS UPX2, CALL LIGHT IN REACH.
--- NOTE | 2019-06-05 19:01 | NUR ---
Patient alert and OOB ambulating hallway, pains well managed, report given to on coming nurse. Addendum: 06/05/19 at 1904 by Errol Pruett RN Wrong patient
--- NOTE | 2019-06-05 20:50 | NUR ---
PATIENT REFUSED INSULIN AT THIS TIME, STATING WHEN HE GOT IT PREVIOUSLY, IT MADE HIS BLOOD SUGAR DROP TOO MUCH. TOLD PATIENT HIS BS IS 180 AND IT IS IMPORTANT TO GET THE SUGAR INTO HIS CELLS WITH THE INSULIN, BUT PATIENT STILL REFUSED.
[2019-06-06] VITALS (8 sets, daily range): BP systolic 125–172; BP diastolic 59–74
--- NOTE | 2019-06-06 00:03 | NUR ---
SPOKE WITH MD JUNE, COVERING FOR MD Vanessa YOUNG. PATIENT REQUESTING MEDICATION TO HELP HIM SLEEP HE HAS NOT SLEPT THE PAST 2 NIGHTS. NEW ORDERS RECEIVED TO RESTART HOME MED.
[2019-06-06] MEDS: TEMAZEPAM 15 MG CAP PO PRN (00:29)
--- NOTE | 2019-06-06 04:10 | NUR ---
PATIENT FOUND TO BE WALKING HALLS. UPON SEEING STAFF REMEMBERED WHERE HE WAS AND STARTED WALKING BACK TO HIS ROOM. PATIENT REPORTS THE MEDICATION TO HELP HIM SLEEP SOMETIMES CAUSES HIM TO SLEEP WALK. PATIENT IS ORIENTED AND REMEMBERED STAFF'S NAMES, WHERE HE WAS, WHY HE IS IN THE HOSPITAL. ASSISTED PATIENT BACK TO BED, PUT BED ALARM ON, LEFT EXTRA LIGHT ON IN ADDITION TO BATHROOM LIGHT. WILL CONTINUE TO MONITOR.
--- NOTE | 2019-06-06 07:00 | NUR ---
Morning rounds completed at bedside and side rails are elevated. The pt. has no complaints or concerns at this time.
[2019-06-06] MEDS: INSULIN LISPRO 100 UNIT/1 ML 3ML VIAL SQ SCH ×4 (07:30→20:50)
[2019-06-06] MEDS: BUDESONIDE/FORMOTEROL 160/4.5MCG INHALER INH SCH ×2 (07:43→19:38)
[2019-06-06] MEDS: MEROPENEM 1GM 100 ML IV SCH (08:49)
[2019-06-06] MEDS: LOSARTAN POTASSIUM 100 MG TAB PO SCH (08:55)
[2019-06-06] MEDS: CLOPIDOGREL BISULFATE 75 MG TAB PO SCH (08:57)
[2019-06-06] MEDS: ENOXAPARIN SOD INJ 40 MG/0.4 ML SYR SC SCH (16:41)
--- NOTE | 2019-06-06 17:13 | Progress Note ---
DATE: 06/05/2019 SUBJECTIVE: The patient was seen on June 05. The patient is currently lying in bed, comfortable. No complaints. No new problems. Slightly confused. REVIEW OF SYSTEMS: HEENT: Negative. PULMONARY: Negative. CARDIAC: Negative. PHYSICAL EXAMINATION: GENERAL: He is currently alert, oriented, follows simple commands. HEENT: Not icteric. NECK: Supple. CHEST: Clear. HEART: S1 and S2. No S3, S4, or murmur. ABDOMEN: Soft. Bowel sounds present. No tenderness. EXTREMITIES: No edema. LABORATORY DATA: Reviewed. Blood cultures negative. Urine cultures were negative. IMPRESSION AND PLAN: 1. Altered mental status. Neurology is following. There is no evidence of urinary tract infection at present time. 2. Chronic obstructive pulmonary disease exacerbation. 3. The patient had no fever since admission. Can discontinue antibiotic if blood cultures are negative tomorrow. MD ANGELITO Greenberg/REBECCA /[id number]
[2019-06-07] VITALS (8 sets, daily range): BP systolic 131–172; BP diastolic 61–87
[2019-06-07] MEDS: TEMAZEPAM 15 MG CAP PO PRN ×2 (00:17→23:21)
[2019-06-07 05:52] LABS: BASOPHILS % 0.4 % (0.0-1.0); EOSINOPHILS # (AUTO) 0.4 (0.0-0.4); EOSINOPHILS % 8.1 % (0.0-6.0); HEMATOCRIT 33.7 % (38.2-49.6); HEMOGLOBIN 10.9 g/dL (14.0-18.0); LYMPHOCYTES # (AUTO) 1.2 (1.0-3.2); LYMPHOCYTES % 21.8 % (18.0-39.1); MEAN CORPUSCULAR HEMOGLOBIN 28.5 pg (28-32); MEAN CORPUSCULAR HGB CONC 32.3 g/dL (31-35); MEAN CORPUSCULAR VOLUME 88.2 fL (81-99); MONOCYTES # (AUTO) 0.6 (0.2-0.8); MONOCYTES % 11.3 % (4.4-11.3); NEUTROPHILS # (AUTO) 3.2 (2.1-6.9); PLATELET COUNT 238 x10e3/uL (140-360); RED BLOOD COUNT 3.82 x10e6/uL (4.3-5.7); RED CELL DISTRIBUTION WIDTH 14.1 % (11.7-14.4)
[2019-06-07 06:16] LABS: ALBUMIN 2.9 g/dL (3.5-5.0); ALBUMIN/GLOBULIN RATIO 0.9 (0.8-2.0); ANION GAP 10.8 mmol/L (8-16); CALCIUM 8.9 mg/dL (8.4-10.2); CREATININE, SERUM 1.2 mg/dL (0.72-1.25); POTASSIUM 3.8 mmol/L (3.5-5.1)
--- NOTE | 2019-06-07 07:00 | NUR ---
Bedside rounds compled with the off-going nurse and the pt. is sleeping soundly without apparent distress.
--- NOTE | 2019-06-07 07:03 | NUR ---
BEDSIDE SHIFT REPORT GIVEN TO ONCOMING NURSE.PT RESTING IN BED WITH NO S/S OF DISTRESS.
[2019-06-07] MEDS: BUDESONIDE/FORMOTEROL 160/4.5MCG INHALER INH SCH ×2 (07:23→19:02)
[2019-06-07] MEDS: INSULIN LISPRO 100 UNIT/1 ML 3ML VIAL SQ SCH ×4 (07:30→21:05)
[2019-06-07] MEDS: LOSARTAN POTASSIUM 100 MG TAB PO SCH (08:52)
[2019-06-07] MEDS: CLOPIDOGREL BISULFATE 75 MG TAB PO SCH (08:52)
[2019-06-07] MEDS: ALBUTEROL/IPRATROPIUM 3 ML NEB NEB SCH ×3 (11:00→19:02)
[2019-06-07] MEDS: ENOXAPARIN SOD INJ 40 MG/0.4 ML SYR SC SCH (16:43)
--- NOTE | 2019-06-07 19:28 | NUR ---
Patient received lying in bed. AAO x 3. Patient had no complaints of pain. Respirations even and non-labored on 2L NC. Fall precautions implemented. Call light within reach.
[2019-06-08 00:10] VITALS: BP 142/66
[2019-06-08] MEDS: ALBUTEROL/IPRATROPIUM 3 ML NEB NEB SCH ×2 (00:15→06:53)
[2019-06-08 05:29] LABS: BASOPHILS % 0.4 % (0.0-1.0); EOSINOPHILS # (AUTO) 0.4 (0.0-0.4); EOSINOPHILS % 6.8 % (0.0-6.0); HEMATOCRIT 32.9 % (38.2-49.6); HEMOGLOBIN 10.4 g/dL (14.0-18.0); LYMPHOCYTES # (AUTO) 1.2 (1.0-3.2); LYMPHOCYTES % 22.7 % (18.0-39.1); MEAN CORPUSCULAR HEMOGLOBIN 28.1 pg (28-32); MEAN CORPUSCULAR HGB CONC 31.6 g/dL (31-35); MEAN CORPUSCULAR VOLUME 88.9 fL (81-99); MONOCYTES # (AUTO) 0.6 (0.2-0.8); MONOCYTES % 10.8 % (4.4-11.3); NEUTROPHILS # (AUTO) 3.1 (2.1-6.9); NEUTROPHILS % 59.1 % (38.7-80.0); PLATELET COUNT 231 x10e3/uL (140-360); RED CELL DISTRIBUTION WIDTH 14.2 % (11.7-14.4)
[2019-06-08 05:33] VITALS: BP 158/78
[2019-06-08 05:54] LABS: ALANINE AMINOTRANSFERASE 11 IU/L (0-55); ALBUMIN 2.9 g/dL (3.5-5.0); ALBUMIN/GLOBULIN RATIO 0.9 (0.8-2.0); ALKALINE PHOSPHATASE 73 IU/L (40-150); ANION GAP 12.1 mmol/L (8-16); BLOOD UREA NITROGEN 18 mg/dL (7-26); BUN/CREATININE RATIO 18 (6-25); CALCIUM 9.1 mg/dL (8.4-10.2); CARBON DIOXIDE 29 mmol/L (22-29); CHLORIDE 104 mmol/L (98-107); CREATININE, SERUM 1.01 mg/dL (0.72-1.25); EST GLOMERULAR FILTRATION RATE > 60 ML/MIN (60-); GLUCOSE 133 mg/dL (74-118); POTASSIUM 4.1 mmol/L (3.5-5.1); SODIUM 141 mmol/L (136-145)
[2019-06-08] MEDS: BUDESONIDE/FORMOTEROL 160/4.5MCG INHALER INH SCH (06:53)
--- NOTE | 2019-06-08 07:00 | NUR ---
Walking rounds done. Patient resting comfortably. Shift report given to oncoming nurse.
[2019-06-08 08:00] VITALS: BP 129/62
[2019-06-08 08:22] VITALS: BP 158/78
[2019-06-08] MEDS: LOSARTAN POTASSIUM 100 MG TAB PO SCH (08:28)
[2019-06-08] MEDS: CLOPIDOGREL BISULFATE 75 MG TAB PO SCH (08:28)
[2019-06-08] MEDS: INSULIN LISPRO 100 UNIT/1 ML 3ML VIAL SQ SCH (08:29)
--- NOTE | 2019-06-08 10:38 | NUR ---
Patient oxygen saturation checked on room air 93%
--- NOTE | 2019-06-08 10:43 | NUR ---
Received order from Dr. Lyn to set up outpatient therapy and if insurance not approved, set up home health. Spoke to pt at bedside. He states to talk to his since she would be the one taking him to therapy. CM placed call to pt's Magaly and left message for her to call back.
--- NOTE | 2019-06-08 11:01 | NUR ---
Received return call from pt's Magaly Souza [phone]. Discussed dc plan for today. Pt's states that outpatient physical therapy is preferred, because pt will not cooperate in their home. She states pt has been to our outpatient therapy previously and would like for him to go there again. CM asked if she would be willing to have home health come out, if insurance is not approved. She said no, they do not want home health. CM spoke to pt at bedside regarding above. He's agreeable to outpatient therapy. Choice letter signed and placed in chart. Copy to pt's transition of care folder. IMM letter explained to pt. He verbalized understanding. Signed copy in chart. Copy in pt's transition of care folder. CM also explained IMM to pt's over the phone. Facesheet and outpatient order faxed to [facility] at [phone]. Informed pt discharging today.
[2019-06-08 12:00] VITALS: BP 148/74
--- NOTE | 2019-06-08 12:17 | NUR ---
Discharge instructions were given to the patient and his . They verbalized understanding. IV to the right FA was removed with tip intact.
--- NOTE | 2019-06-08 12:18 | NUR ---
Patient left the floor via wheelchair, he is discharged home.
[2019-06-08] MEDS ORDERED: ONDANSETRON HCL 4 MG ORAL DISINTEGRATING TAB PO PRN (12:45)
--- NOTE | 2019-06-08 23:26 | Discharge Summary ---
HISTORY: He is an 83-year-old male patient of mine, presented to me with a complaint of altered mental status. The patient had increasing confusion for the last few days and the patient had recurrent emergency room visit, which was discharged and then the patient was sent home on oral antibiotic, but at home, the patient was falling and confused, so the patient was brought back. Subsequently, the patient was admitted with metabolic encephalopathy, UTI, severe COPD, diabetes mellitus with nephropathy, vascular disease, hypertensive heart disease, and metastatic prostate cancer. HOSPITAL COURSE SUMMARY: The patient was admitted with above diagnosis. The patient had a CT scan done, which was negative for any acute stroke. The patient had ID, Nephrology, Neurology consultation were done. The patient's altered mental status was mostly metabolic related. The patient was treated with IV meropenem. The patient was also given physical therapy, occupational therapy. Urine culture was negative and blood cultures were negative. Now upon stabilization, the patient will be discharged home with outpatient PT and OT either through the home health care or outpatient. The patient will be followed up as outpatient quickly. Further care in the next couple of days. DISCHARGE DIAGNOSES: Metabolic encephalopathy secondary to urinary tract infection, but no sepsis. Metastatic prostate cancer, diabetes mellitus, hypertensive heart disease, severe chronic obstructive pulmonary disease, and renal insufficiency. MD GAYLA Piña/MODL /[id number]
== END 2019-06-08 12:11 | disposition home or self-care (01) | DRG 689 ==
LOC: ER 13:24 → ERHOLD 15:41 → MED/SURG2 18:16
PROVIDERS: ADMIT Internal Medicine; ATTEND Internal Medicine
DX: N30.00 Acute cystitis without hematuria (principal); G93.41 Metabolic encephalopathy; N17.9 Acute kidney failure, unspecified; J44.1 Chronic obstructive pulmonary disease with (acute) exacerbation; I10 Essential (primary) hypertension; E11.9 Type 2 diabetes mellitus without complications; E78.5 Hyperlipidemia, unspecified; Z90.49 Acquired absence of other specified parts of digestive tract; Z88.8 Allergy status to other drugs, medicaments and biological substances; Z91.013 Allergy to seafood; Z96.641 Presence of right artificial hip joint; Z85.46 Personal history of malignant neoplasm of prostate; Z82.49 Family history of ischemic heart disease and other diseases of the circulatory system; Z87.891 Personal history of nicotine dependence; Z79.82 Long term (current) use of aspirin; Z79.84 Long term (current) use of oral hypoglycemic drugs
CPT/HCPCS: 36415; 70450; 71045; 80048; 80053; 81001; 82550; 82553; 82948; 83605; 83735; 84484; 85025; 85610; 85730; 87040; 87086; 94640; 94664; 99284; J1650; J2405; J7030; J7040

== ENCOUNTER 2019-06-11 10:13 | Emergency (ER) | payer MEDICARE ==
[~2019-06-11] VITALS: Ht 210.8 cm; Wt 83.5 kg
[~2019-06-11 10:13] MED LIST changes: +SERTRALINE HCL50 MG PO; +TRELEGY ELLIPTA IH
--- OUTSIDE RECORDS SUMMARY | 2019-06-11 10:16 | XMS REPORT | Clinical Summary ---
Author Author ANN F[facility]landSt[facility] CenterScal[facility] Inc[facility] Address Unknown Phone Unavailable Care Team Providers Care Toll Line Mechanic Name Role Phone Sharpless PCP Allergies Comments [...] Not on file Results Not on fileafter 06/10/2018 Insurance Payer Benefit Subscriber ID Type Phone Address Plan / Group AETNA - MEDICARE MGD CARE AETNA xxxxxxxx [facility] [phone] [address] [place] [address] O POS
--- NOTE | 2019-06-11 12:30 | Diagnostic Imaging Report ---
CT BRAIN WO HISTORY: 83-year-old male with altered mental status COMPARISON: CT brain without contrast 06/03/2019 TECHNIQUE: Noncontrast axial scans were obtained from skull base to the vertex. Coronal and sagittal reconstructions obtained from the axial data. One or more of the following dose reduction techniques were used: Automated exposure control, adjustment of the mA and/or kV according to patient size, and/or utilization of iterative reconstruction technique. DISCUSSION: Scalp/Skull: Unremarkable. Brain sulci: Mild volume loss for patient's age. Ventricles: No hydrocephalus. Extra-axial spaces: No masses or fluid collections. Parenchyma: There are confluent hypoattenuating foci are noted in the deep and periventricular white matter consistent with chronic microvascular ischemic changes. A chronic lacunar infarct is noted in the left putamen. No mass, hemorrhage, or large vascular territory acute infarct. Dural sinuses: No abnormal densities. Sellar/Suprasellar region: Intact. Skull base: Intact. Vessels: Atherosclerosis is identified within the left intracranial vertebral artery and bilateral carotid siphons. IMPRESSION: 1. No acute intracranial abnormalities when compared to prior head CT performed June 03, 2019. 2. Unchanged chronic small vessel ischemic changes and volume loss. This preliminary report was issued by Dr. Rodrigo Denney neuroradiology fellow at 1230 hours on 06/11/2019. The images and preliminary report were reviewed and signed by Dr. Jennifer Mario, neuroradiology faculty, on 06/11/2019 at 1530 hours. Signed by: Dr. Jennifer Mario M.D. on 06/11/2019 3:31 PM
--- NOTE | 2019-06-11 12:47 | Diagnostic Imaging Report ---
EXAMINATION: CHEST SINGLE (PORTABLE) INDICATION: UTI. COMPARISON: Chest radiograph 06/04/2019. FINDINGS: TUBES and LINES: None. LUNGS: Hyperinflated lungs. Mild patchy bibasilar opacity, likely atelectasis. No evidence of lobar pneumonia or pulmonary edema. PLEURA: No pleural effusion or pneumothorax. HEART AND MEDIASTINUM: The cardiomediastinal silhouette is unremarkable. There are atherosclerotic calcifications within the aorta. BONES AND SOFT TISSUES: No acute osseous abnormality. Old healed left posterior third and fourth rib fractures. UPPER ABDOMEN: No free air under the diaphragm. IMPRESSION: No acute thoracic abnormality. Signed by: Dr. Manohar Jolley MD on 06/11/2019 12:44 PM
[2019-06-11 12:58] LABS: BASOPHILS % 0.8 % (0.0-1.0); EOSINOPHILS # (AUTO) 0.4 (0.0-0.4); EOSINOPHILS % 8.5 % (0.0-6.0); HEMATOCRIT 34.7 % (38.2-49.6); HEMOGLOBIN 11.4 g/dL (14.0-18.0); LYMPHOCYTES # (AUTO) 1.1 (1.0-3.2); LYMPHOCYTES % 21.8 % (18.0-39.1); MEAN CORPUSCULAR HEMOGLOBIN 28.6 pg (28-32); MEAN CORPUSCULAR HGB CONC 32.9 g/dL (31-35); MONOCYTES # (AUTO) 0.5 (0.2-0.8); MONOCYTES % 10.2 % (4.4-11.3); NEUTROPHILS % 58.5 % (38.7-80.0); PLATELET COUNT 266 x10e3/uL (140-360); RED BLOOD COUNT 3.99 x10e6/uL (4.3-5.7); RED CELL DISTRIBUTION WIDTH 13.7 % (11.7-14.4)
[2019-06-11 13:11] LABS: INR 0.92; PROTHROMBIN TIME 12.9 seconds (11.9-14.5)
[2019-06-11 13:12] LABS: PARTIAL THROMBOPLASTIN TIME 38.2 seconds (23.8-35.5)
[2019-06-11 13:17] LABS: ALBUMIN/GLOBULIN RATIO 0.9 (0.8-2.0); ALKALINE PHOSPHATASE 83 IU/L (40-150); ANION GAP 11.9 mmol/L (8-16); BLOOD UREA NITROGEN 25 mg/dL (7-26); BUN/CREATININE RATIO 21 (6-25); CARBON DIOXIDE 28 mmol/L (22-29); CHLORIDE 103 mmol/L (98-107); CREATINE KINASE 63 IU/L (30-200); CREATININE, SERUM 1.18 mg/dL (0.72-1.25); EST GLOMERULAR FILTRATION RATE 59 ML/MIN (60-); GLUCOSE 173 mg/dL (74-118); POTASSIUM 3.9 mmol/L (3.5-5.1); SODIUM 139 mmol/L (136-145)
[2019-06-11 13:18] LABS: ALANINE AMINOTRANSFERASE < 6 IU/L (0-55)
[2019-06-11 13:25] LABS: B-TYPE NATRIURETIC PEPTIDE2 193.2 pg/mL (0-100)
[2019-06-11 14:03] LABS: BILIRUBIN,URINE NEGATIVE (NEGATIVE); CLARITY,URINE CLEAR (CLEAR); COLOR,URINE YELLOW (YELLOW); KETONES,URINE NEGATIVE (NEGATIVE); LEUKOCYTE ESTERASE ,URINE SMALL (NEGATIVE); NITRITE,URINE NEGATIVE (NEGATIVE); PROTEIN,URINE DIPSTICK NEGATIVE (NEGATIVE); URINE UROBILINOGEN 0.2 mg/dL (0.2 - 1)
[2019-06-11 14:10] LABS: BACTERIA,URINE FEW /HPF; EPITHELIAL CELLS,URINE FEW /LPF
[2019-06-11] MEDS ORDERED: CEFTRIAXONE SOD 1 GM/NS 50 ML 50 ML IV ONE (17:15)
[2019-06-11] MEDS ORDERED: ACETAMINOPHEN 325 MG TAB PO ONE (17:30)
== END 2019-06-11 18:10 | disposition home or self-care (01) ==
LOC: ER 10:13
DX: R41.0 Disorientation, unspecified (principal); N39.0 Urinary tract infection, site not specified; I10 Essential (primary) hypertension; E11.9 Type 2 diabetes mellitus without complications; E78.5 Hyperlipidemia, unspecified; J44.9 Chronic obstructive pulmonary disease, unspecified; Z85.89 Personal history of malignant neoplasm of other organs and systems
CPT/HCPCS: 36415; 70450; 71045; 80053; 81001; 82550; 82553; 83605; 83880; 84443; 84484; 85025; 85610; 85730; 87040; 87086; 93005; 99284; J0696

== ENCOUNTER 2019-08-29 13:27 | Inpatient (IN) | payer MEDICARE ==
[~2019-08-29] VITALS: Ht 182.9 cm; Wt 75.7 kg
[2019-08-29] MEDS ORDERED: ONDANSETRON HCL INJ 2MG/ML 2ML 2 MG/ML VIAL IV ONE (13:54)
[2019-08-29] MEDS ORDERED: SODIUM CHLORIDE 0.9% 1000ML 1,000 ML IV STA (13:54)
[2019-08-29 14:27] LABS: BASOPHILS % 0.2 % (0.0-1.0); EOSINOPHILS # (AUTO) 0.6 (0.0-0.4); HEMATOCRIT 37.1 % (38.2-49.6); HEMOGLOBIN 11.9 g/dL (14.0-18.0); LYMPHOCYTES % 14.9 % (18.0-39.1); MEAN CORPUSCULAR HEMOGLOBIN 28.2 pg (28-32); MEAN CORPUSCULAR HGB CONC 32.1 g/dL (31-35); MEAN CORPUSCULAR VOLUME 87.9 fL (81-99); MONOCYTES # (AUTO) 0.6 (0.2-0.8); MONOCYTES % 8.8 % (4.4-11.3); NEUTROPHILS # (AUTO) 4.4 (2.1-6.9); NEUTROPHILS % 66.8 % (38.7-80.0); PLATELET COUNT 265 x10e3/uL (140-360); RED BLOOD COUNT 4.22 x10e6/uL (4.3-5.7); RED CELL DISTRIBUTION WIDTH 14.9 % (11.7-14.4)
[2019-08-29 14:38] LABS: INR 0.92; PROTHROMBIN TIME 12.9 seconds (11.9-14.5)
[2019-08-29 14:39] LABS: PARTIAL THROMBOPLASTIN TIME 29.2 seconds (23.8-35.5)
[2019-08-29 14:41] LABS: ALBUMIN 3.2 g/dL (3.5-5.0); ALBUMIN/GLOBULIN RATIO 0.7 (0.8-2.0); ANION GAP 13.9 mmol/L (8-16); CALCIUM 9.4 mg/dL (8.4-10.2); CREATININE, SERUM 1.28 mg/dL (0.72-1.25); POTASSIUM 4.9 mmol/L (3.5-5.1)
[2019-08-29 14:47] LABS: CREATINE KINASE MB 2.5 ng/mL (0-5.0)
--- NOTE | 2019-08-29 15:07 | Diagnostic Imaging Report ---
EXAMINATION: CHEST SINGLE (PORTABLE) INDICATION: Nausea, fever COMPARISON: Chest radiograph 06/11/2019 FINDINGS: LINES/TUBES:EKG leads overlie the chest. LUNGS:The lungs are well-inflated. No focal consolidation or pulmonary edema. Linear opacities at both lung bases, likely subsegmental atelectasis PLEURA:No pleural effusion or pneumothorax. MEDIASTINUM:The cardiomediastinal silhouette appears normal in size and shape. Atherosclerotic calcifications of the thoracic aorta. BONES/SOFT TISSUES:No acute osseous injury. Healed left posterior rib fractures. ABDOMEN:No free air under the diaphragm. IMPRESSION: No focal pneumonia or pulmonary edema. Bibasilar subsegmental atelectasis. Signed by: Leticia Zepeda MD on 08/29/2019 3:03 PM
--- NOTE | 2019-08-29 15:13 | NUR ---
PT/FM UPDATED AND WARM BLANKETS GIVEN.
[2019-08-29 15:24] LABS: BILIRUBIN,URINE NEGATIVE (NEGATIVE); CLARITY,URINE SL CLOUDY (CLEAR); COLOR,URINE YELLOW (YELLOW); KETONES,URINE NEGATIVE (NEGATIVE); LEUKOCYTE ESTERASE ,URINE TRACE (NEGATIVE); NITRITE,URINE NEGATIVE (NEGATIVE); PROTEIN,URINE DIPSTICK NEGATIVE (NEGATIVE); URINE UROBILINOGEN 0.2 mg/dL (0.2 - 1)
[2019-08-29] MEDS ORDERED: SODIUM CHLORIDE 0.9% 1000ML 1,000 ML IV SCH (15:45)
[2019-08-29] MEDS: DILTIAZEM HCL 5 MG/ML 5 ML VIAL IV STA ×2 (15:50→16:02)
[2019-08-29 15:58] LABS: BACTERIA,URINE MODERATE /HPF; EPITHELIAL CELLS,URINE FEW /LPF; MUCUS,URINE FEW (RARE); RBC,URINE 0-5 /HPF (0-5)
[2019-08-29] MEDS ORDERED: LEVOFLOXACIN 500MG/D5W 100ML 100 ML IV SCH (16:00)
--- NOTE | 2019-08-29 17:25 | NUR ---
updated on beds; food tray brought
[2019-08-29] MEDS: MEROPENEM 1GM 100 ML IV SCH (19:14)
[2019-08-29] MEDS ORDERED: LORAZEPAM INJ 2 MG/ML VIAL IV PRN (19:15)
[2019-08-29] MEDS ORDERED: ATORVASTATIN 20 MG TAB PO SCH (21:00)
[2019-08-29] MEDS ORDERED: SODIUM CHLORIDE 0.9% 50ML 50 ML ONE (21:43)
--- NOTE | 2019-08-29 21:43 | Diagnostic Imaging Report ---
EXAMINATION: Head CT with contrast. HISTORY:Altered mental status. COMPARISON:CT brain from 06/11/2019. TECHNIQUE: Multidetector axial images were obtained from the foramen magnum to the vertex with contrast. The images were reconstructed using brain and bone algorithms. Thin section brain images were reformatted into coronal and sagittal planes. Dose modulation, iterative reconstruction, and/or weight based adjustment of the mA/kV was utilized to reduce the radiation dose to as low as reasonably achievable. Intravenous contrast: 100 mL of Isovue-370. IMAGE QUALITY: Acceptable. FINDINGS: Skull/scalp: No lytic or blastic. lesions. No surgical changes. Parenchyma: Nonspecific bilateral frontoparietal confluent periventricular and patchy subcortical white matter hypodensity are likely related to small vessel ischemic changes. Unchanged focal hypodensity in left putamen represents chronic lacunar infarct. Suboptimal evaluation for hemorrhage due to lack of precontrast images. No mass or acute major vascular territorial infarct. No abnormal enhancement. Arteries: No density suggestive of thrombosis. Atherosclerotic calcification in bilateral carotid siphon. Dural sinuses: No abnormal density suggestive of thrombosis. Ventricles: Moderate compensated dilatation due to volume loss. No hydrocephalus. Extra-axial spaces: No abnormal density. Brain volume: Mild generalized cerebral volume loss. Craniocervical junction: No mass, Chiari malformation, or basilar invagination. Sella: No mass. Paranasal/mastoid sinuses: Imaged portions unremarkable. IMPRESSION: 1. No acute intracranial abnormality. 2. No change since CT head from 06/11/2019. Chronic findings: 1. Mild generalized cerebral volume loss. 2. Moderate supratentorial white matter microvascular ischemic changes. Signed by: Dr. Yue Knight M.D. on 08/29/2019 9:40 PM
[2019-08-29] MEDS ORDERED: IOPAMIDOL 370 MG/ML 200 ML INFUS..BTL INJ ONE (21:44)
[2019-08-29] MEDS ORDERED: MEROPENEM 1GM 100 ML IV SCH (22:00)
[2019-08-29] MEDS: SERTRALINE HCL 50 MG TAB PO SCH (22:07)
[2019-08-29] MEDS: ATORVASTATIN 40 MG TAB PO SCH (22:07)
--- NOTE | 2019-08-29 23:00 | NUR ---
UNABLE TO SEND PATIENT TO ROOM AT THIS TIME PER ENGINEERING GROUP LEADER. FAMILY AND PATIENT UPDATED THAT WAITING ON ROOM TO BE READY.
[2019-08-29 23:03] LABS: CREATINE KINASE MB 2.4 ng/mL (0-5.0)
[2019-08-30] VITALS (9 sets, daily range): BP systolic 99–176; BP diastolic 64–84
--- NOTE | 2019-08-30 00:29 | History and Physical ---
This is an 84-year-old male patient, presented to the emergency room with altered mental status. HISTORY OF PRESENT ILLNESS: Mr. Harley Coley was seen as outpatient and the patient was having sudden onset of confusion and disorientation. For that, the patient was seen as outpatient and treated with intramuscular Rocephin and Omnicef antibiotics on last Thursday and then the patient has a recurrent episode of sudden onset of confusion and agitation as well as few chills and sweating episode and patient also having dysuria, urinary frequency, nausea, fever, and chills intermittently. PAST MEDICAL HISTORY: The patient has a history of diabetes mellitus, COPD, prostate cancer, osteoarthritis, hypertensive heart disease, and recurrent UTI and depression and anxiety. PAST SURGICAL HISTORY: Appendectomy, cholecystectomy, and hip surgery. ALLERGIES: THE PATIENT IS ALLERGIC TO IODINE, LISINOPRIL, AND JANUVIA. SOCIAL HISTORY: Denies smoking, but denies any drug use or alcohol. REVIEW OF SYSTEMS: the patient was complaining of weakness and intermittent confusion and the sweating episode. PHYSICAL EXAMINATION: GENERAL: Elderly male, patient lying in the bed. The patient is awake, alert and oriented, but patient had pulled out all the telemetry leads and blood pressure monitored. VITAL SIGNS: Temperature 99, pulse rate 88, respirations 20, blood pressure 110/70. HEENT: Normocephalic and atraumatic. NECK: No JVD. No lymphadenopathy. LUNGS: Bilateral equal air entry. No rales or rhonchi. HEART: S1 and S2. Regular. Systolic murmur present. ABDOMEN: Soft. Bowel sounds present. NEUROLOGIC: The patient is alert, awake and oriented, but patient has intermittent confusion. LABORATORY EXAMINATION: The patient urination, bacteria and leukocytes. Urine WBC . ADMITTING IMPRESSION/DIAGNOSES: Altered mental status, metabolic encephalopathy, most probably secondary to the infection. . PLAN: The patient will be admitted with above diagnoses. The patient will be given . MD GAYLA Piña/REBECCA /[id number]
--- NOTE | 2019-08-30 01:00 | NUR ---
UNABLE TO SEND PATIENT TO ROOM AT THIS TIME PER BOTANY TEACHER.
[2019-08-30] MEDS: MEROPENEM 1GM 100 ML IV SCH ×3 (02:46→21:24)
--- NOTE | 2019-08-30 03:28 | NUR ---
MASTIC MAN TO ROOM LISTEN TO FAMILY MEMBER CONCERNS ABOUT LONG WAIT TO GO TO FLOOR. PATIENT TO GO TO ROOM AT THIS TIME. FAMILY AND PATIENT C NO COMPLAINTS AT THIS TIME.
--- NOTE | 2019-08-30 03:30 | NUR ---
Patient arrived from ER via stretcher with at side. He is alert & oriented x2, easily redirects at this time. Per patient can be "unruly at times" Bed alarm placed for safety, and patient instructed not to get up without assistance. History obtained from . Initial assessment done. Bed in lowest position, locked, and call davies within reach. Will continue to monitor.
[2019-08-30] MEDS ORDERED: PROAIR HFA INH8.5 GM INH (04:26)
[2019-08-30 07:17] LABS: BASOPHILS % 0.2 % (0.0-1.0); EOSINOPHILS # (AUTO) 0.7 (0.0-0.4); EOSINOPHILS % 10.7 % (0.0-6.0); HEMATOCRIT 32.8 % (38.2-49.6); HEMOGLOBIN 10.6 g/dL (14.0-18.0); LYMPHOCYTES # (AUTO) 1.4 (1.0-3.2); LYMPHOCYTES % 23.3 % (18.0-39.1); MEAN CORPUSCULAR HEMOGLOBIN 28.4 pg (28-32); MEAN CORPUSCULAR HGB CONC 32.3 g/dL (31-35); MEAN CORPUSCULAR VOLUME 87.9 fL (81-99); MONOCYTES # (AUTO) 0.5 (0.2-0.8); MONOCYTES % 8.8 % (4.4-11.3); NEUTROPHILS # (AUTO) 3.5 (2.1-6.9); NEUTROPHILS % 56.8 % (38.7-80.0); PLATELET COUNT 225 x10e3/uL (140-360); RED BLOOD COUNT 3.73 x10e6/uL (4.3-5.7)
[2019-08-30] MEDS: LORATADINE 10 MG TAB PO SCH (07:41)
[2019-08-30] MEDS: ASPIRIN 325 MG TAB PO SCH (07:41)
[2019-08-30] MEDS: GLIMEPIRIDE 2 MG TAB PO SCH (07:41)
[2019-08-30] MEDS: METFORMIN HCL 750 MG TAB ER PO SCH (07:41)
[2019-08-30] MEDS: LOSARTAN POTASSIUM 25 MG TAB PO SCH (07:41)
[2019-08-30] MEDS: ATENOLOL 50 MG TAB PO SCH (07:41)
[2019-08-30 07:42] LABS: ALANINE AMINOTRANSFERASE 22 IU/L (0-55); ALBUMIN 2.7 g/dL (3.5-5.0); ALBUMIN/GLOBULIN RATIO 0.8 (0.8-2.0); ALKALINE PHOSPHATASE 60 IU/L (40-150); ANION GAP 9.3 mmol/L (8-16); BLOOD UREA NITROGEN 13 mg/dL (7-26); BUN/CREATININE RATIO 14 (6-25); CALCIUM 8.8 mg/dL (8.4-10.2); CARBON DIOXIDE 28 mmol/L (22-29); CHLORIDE 104 mmol/L (98-107); CREATININE, SERUM 0.93 mg/dL (0.72-1.25); EST GLOMERULAR FILTRATION RATE > 60 ML/MIN (60-); GLUCOSE 84 mg/dL (74-118); POTASSIUM 4.3 mmol/L (3.5-5.1); SODIUM 137 mmol/L (136-145)
[2019-08-30] MEDS: CLOPIDOGREL BISULFATE 75 MG TAB PO SCH (07:42)
[2019-08-30 07:51] LABS: CREATINE KINASE MB 2.4 ng/mL (0-5.0)
[2019-08-30] MEDS ORDERED: METFORMIN HCL 500 MG TAB CR PO SCH (09:00)
[2019-08-30] MEDS ORDERED: ATENOLOL 100 MG TAB PO SCH (09:00)
--- NOTE | 2019-08-30 09:02 | NUR ---
OBS DAY 1 24 HRS UP AT 3PM WEAKNESS, UTI, ALTERED MENTAL STATUS FAILED OP WITH IM ROCEPHIN AND PO OMNICEF MEETS INPT; DR Vanessa YOUNG NOTIFIED
--- NOTE | 2019-08-30 10:23 | NUR ---
Consult called for MD Haines per Dr. Lyn. Dr. Haines stated she will be in later to assess patient.
[2019-08-30] MEDS ORDERED: SODIUM CHLORIDE 0.9% 250ML 250 ML ONE (10:36)
[2019-08-30 11:21] LABS: ABG HCO3 24 mmol/L (23-28); ABG PCO2 43 mmHg (41-51); ABG PH 7.37 (7.31-7.41); ABG PO2 64 mmHg (80-105)
--- NOTE | 2019-08-30 12:47 | NUR ---
CASE SENT TO R1 FOR REVIEW
--- NOTE | 2019-08-30 13:30 | NUR ---
Visit made by the Spiritual Care Department Pastoral Visitor, Audelia Franco. PV provided pastoral presence, prayer, hospitality, and supportive listening. Pastoral Visitor informed pt/family of the scope of Systems Coordinator Services and availability. RYAN MURRAY Ballistics Tester Spiritual Care Department O: [phone] Pager: [phone] ([phone] calling from)
--- NOTE | 2019-08-30 15:43 | NUR ---
The pt. was received to room 103 from [facility] and is awake alert and oriented. He denies pain or diascomfort AT THIS TIME.
[2019-08-30 16:44] LABS: CREATINE KINASE MB 2.5 ng/mL (0-5.0)
--- NOTE | 2019-08-30 18:41 | Consultation ---
DATE OF CONSULTATION: ID Consult REASON FOR CONSULTATION: Urinary tract infection and acute change in mental status. Thank you, Dr. Lyn, for asking me to see this patient. HISTORY OF PRESENT ILLNESS: The patient is an 84-year-old man, who was referred for urinary tract infection and acute change in mental status. He was admitted through the emergency department with acute urinary tract infection with cystitis. He presented to the emergency department with generalized weakness and confusion. He has had dysuria, increased frequency of urination, nausea, intermittent chills, associated with confusion and disorientation. He was evaluated outpatient by the primary care provider and treated with intramuscular Rocephin and Omnicef for 2 to 3 days without improvement. In the emergency department, the patient was noted to have temperature of 98.7 degrees Fahrenheit, pulse rate 69, respiratory rate 20, blood pressure 107/55, and oxygen saturation 92% on room air. Initial laboratory studies showed blood leukocyte count of 6580, BUN 18, creatinine 1.28, and abnormal urinalysis. Brain CT scan showed no acute abnormality. PAST MEDICAL HISTORY: Diabetes mellitus type 2, hypertension, hyperlipidemia, chronic obstructive pulmonary disease, prostate cancer, anxiety and depression. PAST SURGICAL HISTORY: Cholecystectomy, appendectomy, and right hip replacement. ALLERGIES: IODINE, LISINOPRIL, AND SITAGLIPTIN. MEDICATIONS: The current antibiotic medications: See MAR. The current antibiotic is meropenem 1 g IV piggyback q.8 hours. He received Levaquin in the emergency room. IMMUNIZATION: He received influenza and pneumococcal vaccinations prior to admission. FAMILY HISTORY: Significant for diabetes mellitus, hypertension, and heart disease. SOCIAL HISTORY: The patient denies alcohol, tobacco, or recreational drug use. REVIEW OF SYSTEMS: As per history of present illness. PHYSICAL EXAMINATION: GENERAL: No acute distress. VITAL SIGNS: T-max 98.2, pulse rate 63, respiratory rate 18, blood pressure 157/77, and weight 167 pounds. HEENT: Normocephalic and atraumatic. There is no icterus or injection of conjunctivae. There is no ear or nasal discharge. Moist oral mucosa. No pharyngeal erythema or exudate. NECK: Supple. No meningismus. LUNGS: Good air entry bilaterally. HEART: Normal S1, S2. ABDOMEN: Soft and nontender. EXTREMITIES: There is no edema, clubbing, or cyanosis. There is right drop foot. SKIN: No acute erythema. CALL OUT OPERATOR: Awake and alert. The patient was disoriented to person and nonfocal. LABORATORY AND DIAGNOSTICS: WBC 6150, hemoglobin 10.6, platelet 225,000, neutrophils 56.8, lymphocytes 23.3, monocytes 8.8, eosinophils 10.7, basophils 0.2. BUN 13 and creatinine 0.93. Blood culture is pending. Urine culture is also pending. IMPRESSION: 1. Acute metabolic encephalopathy. 2. Urinary tract infection from cystitis and no hematuria. 3. Prostate cancer by history. 4. Eosinophilia, the etiology is unclear at this time. PLAN: Await urine and blood culture results. MD EVELIN Jensen/MODL /[id number]
[2019-08-30] MEDS: ATORVASTATIN 40 MG TAB PO SCH (21:24)
[2019-08-30] MEDS: SERTRALINE HCL 50 MG TAB PO SCH (21:24)
[2019-08-31] VITALS (9 sets, daily range): BP systolic 145–189; BP diastolic 65–80
[2019-08-31] MEDS: MEROPENEM 1GM 100 ML IV SCH ×4 (02:34→20:14)
[2019-08-31] MEDS: METFORMIN HCL 750 MG TAB ER PO SCH (08:00)
[2019-08-31] MEDS: ATENOLOL 50 MG TAB PO SCH (09:00)
[2019-08-31] MEDS: GLIMEPIRIDE 2 MG TAB PO SCH (09:00)
[2019-08-31] MEDS: LOSARTAN POTASSIUM 25 MG TAB PO SCH (09:00)
[2019-08-31] MEDS: ASPIRIN 325 MG TAB PO SCH (09:00)
[2019-08-31] MEDS: LORATADINE 10 MG TAB PO SCH (09:00)
[2019-08-31] MEDS: CLOPIDOGREL BISULFATE 75 MG TAB PO SCH (09:00)
--- NOTE | 2019-08-31 12:27 | NUR ---
Clinicals and PASSR faxed to [facility] [phone] - [phone] pages Addendum: 08/31/19 at 1543 by Beatrice Thompson CM Spoke to [facility]. They have received clinicals and they are working on insurance auth now
[2019-08-31] MEDS ORDERED: SODIUM CHLORIDE 0.9% 250ML 250 ML ONE (12:28)
--- NOTE | 2019-08-31 13:25 | NUR ---
PT REMOVED REJ , NOTIFIED CHARGE OF NEED FOR ANOTHER IV
--- NOTE | 2019-08-31 13:28 | NUR ---
Patient has no IV access.
--- NOTE | 2019-08-31 16:39 | NUR ---
MULTIPLE ATTEMPTS TO START A NEW IV ON PT BY CHARGE, HOUSE AND ICU NURSE, TELEPHONED MD Vanessa YOUNG TO MAKE AWARE, AWAITING CALL BACK
--- NOTE | 2019-08-31 17:07 | Consultation ---
DATE OF CONSULTATION: 08/30/2019 Neurology Consult Note HISTORY OF PRESENT ILLNESS: Mr. Sozua is an 84-year-old right-hand dominant man with an extensive past medical history, admitted to [facility] on August 30, 2019, so doctors could determine "what bug causing all this." According to Mr. Souza, he was admitted to the hospital to determine which organism is causing his current urinary tract infection. Mr. Souza does not report confusion. He does not report fevers or chills, abdominal pain, nausea, vomiting, dysuria, or discoloration of urine. The patient does acknowledge possible urinary frequency and urgency. According to the patient, this is a second urinary tract infection he has had within the past 1 year. The history and physical as dictated by the patient's primary care physician, Dr. Lyn, relates information significantly different from Mr. Souza account of his symptoms. According to Dr. Lyn's note, the patient was seen as an outpatient on Monday, August 26, 2019, with sudden onset of confusion and disorientation. It is reported the patient received a dose of intramuscular Rocephin and Omnicef. Despite treatment with these antibiotics, Mr. Souza continued to be confused. Over the following 2-3 days, he experienced fever, chills, nausea, dysuria, and frequent urination. Mr. Souza is subsequently admitted to [facility] as an inpatient through the emergency center for further evaluation and treatment of the above symptoms. REVIEW OF SYSTEMS: Fever, chills, nausea, dysuria, urinary frequency and urgency, confusion. Otherwise, a 12-point review of systems is negative. PAST MEDICAL HISTORY: Hypertension, hyperlipidemia, diabetes mellitus, COPD, osteoarthritis, 2 urinary tract infections within the past year, depression, prostate cancer, prior history of multiple falls. PAST SURGICAL HISTORY: Right ankle surgery, cervical spine surgery (laminectomies at C3 through C5), abdominal aortic aneurysm repair, bilateral cataract removal, appendectomy, cholecystectomy. PAST HOSPITALIZATIONS: Surgeries/procedures as listed, multiple hospitalizations status post falls. FAMILY MEDICAL HISTORY: Mr. Souza's father from coronary artery disease with a myocardial infarction. His father had COPD as well. The patient's mother from coronary artery disease with a myocardial infarction as well. Mr. Souza had two siblings, a brother and a sister. The brother is alive, but has prostate cancer. Mr. Souza reports his sister at the age of 26 years from pancreatic cancer. The patient has 4 children, 3 sons and 1 daughter. One son is from an intracerebral hemorrhage. The second son is healthy. The medical history of the third son is unknown. The patient's daughter is alive and fairly healthy according to Mr. Souza. SOCIAL HISTORY: Mr. Souza is . He is retired. The patient does report a prior history of tobacco use, but quit smoking cigarettes approximately 15 years ago. The patient does report consuming 1-2 alcoholic beverages per week. He does not report current or prior recreational drug use. HOME MEDICATIONS: Reviewed. Please see the list of home medications available in the electronic medical record. HOSPITAL MEDICATIONS: Reviewed. Please see the list of hospital medications available in the electronic medical record. ALLERGIES: LISINOPRIL, SITAGLIPTIN. SHELLFISH. NO KNOWN ALLERGIES TO LATEX. MR. SOUZA DOES REPORT AN ALLERGY TO IODINE. PHYSICAL EXAMINATION: VITAL SIGNS: Height 72 inches, weight 167 pounds, BMI 22.6 kg/m2, blood pressure 176/84 mmHg, pulse 65 beats per minute, respiratory rate 16 breaths per minute, and oxygen saturation 94% on room air. GENERAL: The patient is awake and alert, does not appear distressed. Normal body habitus. HEENT: Normocephalic, atraumatic. Pupils are surgical. Moist mucous membranes. NECK: Supple. No appreciable thyromegaly. No appreciable carotid bruits. CARDIOVASCULAR: S1, S2, regular rate and rhythm. No murmurs, rubs, or gallops. RESPIRATORY: Clear to auscultation bilaterally. No wheezes, rhonchi, or rales. EXTREMITIES: The skin is warm and dry. No clubbing, cyanosis, or edema. The posterior tibial and dorsalis pedis pulses are 1+ and symmetric. SKIN: No rashes or lesions. NEUROLOGIC: Memory/Attention: The patient is awake and alert, oriented to person, place (city, state), time (day of the week, month, year), and moderately to situation. Cranial Nerves: Cranial nerve I - Not tested. Cranial nerve II, III, IV, and - Pupils are surgical. Extraocular movements intact. No nystagmus. Cranial nerve V - Sensation to light touch and pinprick is intact in the bilateral V1 through V3 distributions. Strength in the temporalis and masseter muscles is within normal limits. Cranial nerve VII - The face is symmetric as are all facial movements. Strength is within normal limits. Cranial nerve VIII - Hearing is diminished to finger rub bilaterally. Cranial nerve IX, X - Soft palate elevates equally and symmetrically. Cranial nerve XI - Normal strength of the bilateral sternocleidomastoid and trapezius muscles. Cranial nerve XII - The tongue protrudes midline and moves symmetrically from [id number]. Strength: Bulk is normal. Strength is 5/5 in the bilateral deltoids, biceps, triceps, wrist flexors and extensors, finger flexors and extensors, intrinsic hand muscles, hip flexors, knee flexors and extensors, ankle dorsiflexion and plantar flexion. Intrinsic foot muscles except as follows: The right foot is inverted and extended. Right ankle dorsiflexion is 4-/5, right ankle plantar flexion is 4+/5, right foot intrinsic muscles are 4/5. Tone is normal. DTRs: Deep tendon reflexes are 1+ and symmetric at the triceps, biceps, and brachioradialis. Deep tendon reflexes are trace and symmetric at the patellas. Deep tendon reflexes are absent and symmetric at the Achilles. Plantar responses are flexor bilaterally. Sensation: Sensation is diminished to light touch and pinprick in a stocking distribution. Cerebellar: [id number] and heel-harris movements are intact without dysmetria or other impairment. Gait: Deferred. Speech: Spontaneous speech is normal without appreciable dysarthria or aphasia. Repetition is intact. Involuntary movements: None. Pronator Drift: None. LABORATORY DATA: The most recent comprehensive metabolic panel is unremarkable. Cardiac enzymes are negative x4. Ammonia is 45. The CBC with differential and platelets reveals a white blood cell count of 6.15 with a normal differential. The hemoglobin and hematocrit are 10.6 and 32.8, respectively. The platelet count is 225. An arterial blood gas revealed pH of 7.37, pCO2 of 43, PO2 of 64, bicarbonate of 24, O2 saturation of 91.0, base excess of -1.0, and FiO2 of 21. A coagulation profile is within normal limits. A urinalysis collected on August 29, 2019 revealed slightly cloudy urine with trace blood, trace leukocyte esterase, 5-10 white blood cells, moderate urine bacteria with few urine epithelial cells. Urine and blood cultures are pending. DIAGNOSTIC STUDIES: Electrocardiogram on 08/29/2019: Sinus rhythm at 73 beats per minute with sinus arrhythmia. Chest x-ray on 08/29/2019: No focal pneumonia or pulmonary edema. Bibasilar subsegmental atelectasis. CT of the brain without contrast on 08/29/2019: On my review, there is no evidence of recent large territorial ischemia, hemorrhage, mass, or mass effect. A chronic lacunar infarct is seen in the left putamen. There is mild diffuse cerebral atrophy with compensatory dilatation of the ventricles. Their findings compatible with moderate chronic small vessel ischemic disease. ASSESSMENT AND PLAN: Mr. Souza is an 84-year-old right-hand dominant man with past medical history as detailed, admitted to [facility] as an inpatient on August 30, 2019, with multiple symptoms, including confusion. The patient has undergone a thorough neurological examination with findings detailed above. His laboratory data and other diagnostic studies have been reviewed and are documented above. In my opinion, the patient's metabolic encephalopathy is secondary to his urinary tract infection. RECOMMENDATIONS: Are as follows: 1. Follow up the results of the urine culture and treat the causative organism with an appropriate antibiotic. In the interim, continue intravenous meropenem. 2. Avoid sedative/hypnotic and pain medications as these will alter the patient's sensorium. 3. Utilize environmental cues to limit delirium. 4. Defer treatment of the remaining medical comorbidities to the primary and other services following the patient. Thank you for this consultation. There are no other recommendations from the Neurology Service at this time. Please call again with any questions or concerns. TIME SPENT: 70 minutes. Paula Haines MD CP/REBECCA /[id number] DAVID
--- NOTE | 2019-08-31 17:19 | NUR ---
Left message on answering machine for Magaly, , notifying her that Isidoro cerda is not in network. Sent clinicals to [facility]. PASSR sent, RTF not sent.
--- NOTE | 2019-08-31 17:58 | NUR ---
SPOKE WITH MD Vanessa YOUNG, MADE AWARE THAT PT HAS NO IV AFTER MULTIPLE ATTEMPTS, ORDERS NOTED, TELEPHONED TO GET TELEPHONE CONSENT FOR PICC IF NEEDED, AWAITING CALL BACK
--- NOTE | 2019-08-31 18:49 | NUR ---
TELEPHONED OTHER PHONE CONTACT, DAUGHTER JUN, LEFT MESSAGE FOR NEED OF PICC LINE CONSENT, AWAITING CALL BACK
--- NOTE | 2019-08-31 19:20 | NUR ---
NEW PERIPHERAL IV STARTED TO LEFT UPPER ARM #20 G.PATENT.SO PICC LINE ORDER CANCELLED RIGHT NOW.
--- NOTE | 2019-08-31 19:23 | NUR ---
TELEPHONE CONSENT OBTAINED FOR PICC LINE, ER NURSE OBTAINED PIV TO VADIM LAZARO TOLERATED WELL
[2019-08-31] MEDS: ATORVASTATIN 40 MG TAB PO SCH (21:10)
[2019-08-31] MEDS: SERTRALINE HCL 50 MG TAB PO SCH (21:10)
[2019-08-31] MEDS: LORAZEPAM 0.5 MG TAB PO PRN (22:07)
--- NOTE | 2019-08-31 22:10 | NUR ---
Agitated and confused.trying to get out of the bed.Ativan 0.5 mg po given.patient spoke with .bed alarm on.no resp.distress.no pain voiced.bed locked and in lowest position.phone and call light within reach.instructed to call for assistance as needed.
[2019-09-01] VITALS (9 sets, daily range): BP systolic 137–192; BP diastolic 63–95
[2019-09-01] MEDS: MEROPENEM 1GM 100 ML IV SCH ×3 (04:03→20:14)
--- NOTE | 2019-09-01 05:20 | NUR ---
Resting in the bed.stable condition.
--- NOTE | 2019-09-01 07:00 | NUR ---
Bed side shift report given to the oncoming Rn.stable condition.
[2019-09-01] MEDS: METFORMIN HCL 750 MG TAB ER PO SCH ×2 (08:18→16:33)
[2019-09-01] MEDS: LORATADINE 10 MG TAB PO SCH (08:18)
[2019-09-01] MEDS: ASPIRIN 325 MG TAB PO SCH (08:18)
[2019-09-01] MEDS: GLIMEPIRIDE 2 MG TAB PO SCH (08:18)
[2019-09-01] MEDS: CLOPIDOGREL BISULFATE 75 MG TAB PO SCH (08:18)
[2019-09-01] MEDS: ATENOLOL 50 MG TAB PO SCH (08:18)
[2019-09-01] MEDS: LOSARTAN POTASSIUM 25 MG TAB PO SCH (08:18)
--- NOTE | 2019-09-01 10:02 | NUR ---
CALLED AND SPOKE WITH KAYA THEY DID NOT RECEIVE THE REFERRAL REFAXED SHE STATES THEY TYPICALLY TAKE 3 TO 4 DAYS STATES WILL NOT BE STARTED UNTIL TOMORROW DUE TO HOLIDAY, STATES WILL NEED TO FAX UPDATES ON THURSDAY
--- NOTE | 2019-09-01 12:17 | NUR ---
Paged jeanie hager regarding high bp after morning meds bp is 178/80 with hr of 77 awaiting for call back
[2019-09-01] MEDS: CLONIDINE HCL 0.1 MG TAB PO PRN (13:21)
--- NOTE | 2019-09-01 19:22 | NUR ---
Received bedside report from day nurse. Patient resting in bed, in stable condition, no s/s of distress at this time. All safety measures in place. Will continue to monitor.
[2019-09-01] MEDS ORDERED: SODIUM CHLORIDE 0.9% 250ML 250 ML ONE (20:11)
[2019-09-01] MEDS: SERTRALINE HCL 50 MG TAB PO SCH (20:14)
[2019-09-01] MEDS: ATORVASTATIN 40 MG TAB PO SCH (20:14)
[2019-09-02] VITALS (7 sets, daily range): BP systolic 120–145; BP diastolic 58–85
[2019-09-02] MEDS: MEROPENEM 1GM 100 ML IV SCH ×3 (04:06→20:25)
[2019-09-02 06:06] LABS: BASOPHILS % 0.6 % (0.0-1.0); EOSINOPHILS # (AUTO) 0.5 (0.0-0.4); EOSINOPHILS % 6.8 % (0.0-6.0); HEMATOCRIT 32.5 % (38.2-49.6); HEMOGLOBIN 10.6 g/dL (14.0-18.0); LYMPHOCYTES # (AUTO) 1.5 (1.0-3.2); LYMPHOCYTES % 22.6 % (18.0-39.1); MEAN CORPUSCULAR HEMOGLOBIN 28.3 pg (28-32); MEAN CORPUSCULAR HGB CONC 32.6 g/dL (31-35); MEAN CORPUSCULAR VOLUME 86.7 fL (81-99); MONOCYTES # (AUTO) 0.6 (0.2-0.8); MONOCYTES % 8.6 % (4.4-11.3); NEUTROPHILS % 61.2 % (38.7-80.0); PLATELET COUNT 258 x10e3/uL (140-360); RED BLOOD COUNT 3.75 x10e6/uL (4.3-5.7); RED CELL DISTRIBUTION WIDTH 14.8 % (11.7-14.4)
[2019-09-02 06:34] LABS: ALANINE AMINOTRANSFERASE 17 IU/L (0-55); ALBUMIN 2.8 g/dL (3.5-5.0); ALBUMIN/GLOBULIN RATIO 0.8 (0.8-2.0); ALKALINE PHOSPHATASE 65 IU/L (40-150); ANION GAP 15.7 mmol/L (8-16); BLOOD UREA NITROGEN 15 mg/dL (7-26); BUN/CREATININE RATIO 16 (6-25); CALCIUM 8.7 mg/dL (8.4-10.2); CARBON DIOXIDE 24 mmol/L (22-29); CHLORIDE 100 mmol/L (98-107); CREATININE, SERUM 0.91 mg/dL (0.72-1.25); EST GLOMERULAR FILTRATION RATE > 60 ML/MIN (60-); GLUCOSE 98 mg/dL (74-118); POTASSIUM 3.7 mmol/L (3.5-5.1); SODIUM 136 mmol/L (136-145)
--- NOTE | 2019-09-02 07:12 | NUR ---
Gave bedside report to day nurse. Patient resting in bed, no s/s of distress or c/o pain at this time. All safety measures in place.
--- NOTE | 2019-09-02 07:30 | NUR ---
Patient received this morning, alert and responsive, no resp distress, call light within reach, will monitor
[2019-09-02] MEDS: GLIMEPIRIDE 2 MG TAB PO SCH (08:00)
[2019-09-02] MEDS: METFORMIN HCL 750 MG TAB ER PO SCH ×2 (08:00→16:35)
[2019-09-02] MEDS: ASPIRIN 325 MG TAB PO SCH (09:29)
[2019-09-02] MEDS: CLOPIDOGREL BISULFATE 75 MG TAB PO SCH (09:29)
[2019-09-02] MEDS: LOSARTAN POTASSIUM 25 MG TAB PO SCH (09:29)
[2019-09-02] MEDS: LORATADINE 10 MG TAB PO SCH (09:29)
[2019-09-02] MEDS: ATENOLOL 50 MG TAB PO SCH (09:30)
--- NOTE | 2019-09-02 19:02 | NUR ---
Received bedside report from day nurse. Patient resting in bed, no s/s of distress or c/o pain at this time. All safety measures in place. Will continue to monitor.
[2019-09-02] MEDS: SERTRALINE HCL 50 MG TAB PO SCH (20:25)
[2019-09-02] MEDS: ATORVASTATIN 40 MG TAB PO SCH (20:25)
[2019-09-02] MEDS: LORAZEPAM 0.5 MG TAB PO PRN (20:32)
[2019-09-03] VITALS (8 sets, daily range): BP systolic 129–180; BP diastolic 59–70
[2019-09-03] MEDS: MEROPENEM 1GM 100 ML IV SCH ×3 (03:10→21:36)
[2019-09-03] MEDS: CLONIDINE HCL 0.1 MG TAB PO PRN (05:29)
--- NOTE | 2019-09-03 06:59 | NUR ---
Bedside report given to oncoming nurse. Patient resting in bed, no s/s of distress or c/o pain at this time. All safety measures in place.
--- NOTE | 2019-09-03 07:30 | NUR ---
Received patient today, a/ox3, no resp distress, call light within reach, will monitor.
[2019-09-03] MEDS: GLIMEPIRIDE 2 MG TAB PO SCH (08:00)
[2019-09-03] MEDS: METFORMIN HCL 750 MG TAB ER PO SCH ×2 (08:00→17:20)
[2019-09-03] MEDS: ASPIRIN 325 MG TAB PO SCH (09:10)
[2019-09-03] MEDS: LORATADINE 10 MG TAB PO SCH (09:10)
[2019-09-03] MEDS: CLOPIDOGREL BISULFATE 75 MG TAB PO SCH (09:10)
[2019-09-03] MEDS: LOSARTAN POTASSIUM 25 MG TAB PO SCH (09:10)
[2019-09-03] MEDS: ATENOLOL 50 MG TAB PO SCH (09:11)
--- NOTE | 2019-09-03 17:08 | NUR ---
Patient remains alert and responsive, no resp distress, BP 143/68, P64, O2Sats 96%RA, no c/o pains, having dinner at this time, will monitor.
--- NOTE | 2019-09-03 19:18 | NUR ---
PT IS RESTING IN BED. RESPIRATION IS EVEN AND UNLABORED, NO DISTRESS NOTED. BED IN THE LOWEST POSITION, LOCKED, AND CALL LIGHT WITHIN REACH. WILL CONTINUE TO MONITOR.
[2019-09-03] MEDS: SERTRALINE HCL 50 MG TAB PO SCH (21:36)
[2019-09-03] MEDS: ATORVASTATIN 40 MG TAB PO SCH (21:36)
[2019-09-03] MEDS: LORAZEPAM 0.5 MG TAB PO PRN (23:03)
[2019-09-04] VITALS (8 sets, daily range): BP systolic 122–184; BP diastolic 58–83
[2019-09-04] MEDS: MEROPENEM 1GM 100 ML IV SCH ×3 (03:46→21:03)
[2019-09-04] MEDS: CLONIDINE HCL 0.1 MG TAB PO PRN (05:44)
[2019-09-04 06:13] LABS: BASOPHILS % 0.7 % (0.0-1.0); EOSINOPHILS # (AUTO) 0.4 (0.0-0.4); EOSINOPHILS % 7.1 % (0.0-6.0); HEMATOCRIT 35.5 % (38.2-49.6); HEMOGLOBIN 11.8 g/dL (14.0-18.0); LYMPHOCYTES # (AUTO) 1.5 (1.0-3.2); LYMPHOCYTES % 25.2 % (18.0-39.1); MEAN CORPUSCULAR HEMOGLOBIN 28.5 pg (28-32); MEAN CORPUSCULAR HGB CONC 33.2 g/dL (31-35); MEAN CORPUSCULAR VOLUME 85.7 fL (81-99); MONOCYTES # (AUTO) 0.6 (0.2-0.8); MONOCYTES % 10.9 % (4.4-11.3); NEUTROPHILS # (AUTO) 3.2 (2.1-6.9); NEUTROPHILS % 55.9 % (38.7-80.0); PLATELET COUNT 273 x10e3/uL (140-360); RED BLOOD COUNT 4.14 x10e6/uL (4.3-5.7); RED CELL DISTRIBUTION WIDTH 14.6 % (11.7-14.4)
[2019-09-04 06:31] LABS: ANION GAP 12.7 mmol/L (8-16); BLOOD UREA NITROGEN 17 mg/dL (7-26); BUN/CREATININE RATIO 20 (6-25); CALCIUM 8.9 mg/dL (8.4-10.2); CARBON DIOXIDE 25 mmol/L (22-29); CHLORIDE 105 mmol/L (98-107); CREATININE, SERUM 0.87 mg/dL (0.72-1.25); EST GLOMERULAR FILTRATION RATE > 60 ML/MIN (60-); GLUCOSE 83 mg/dL (74-118); POTASSIUM 3.7 mmol/L (3.5-5.1); SODIUM 139 mmol/L (136-145)
[2019-09-04] MEDS: METFORMIN HCL 750 MG TAB ER PO SCH ×2 (08:00→16:40)
[2019-09-04] MEDS: GLIMEPIRIDE 2 MG TAB PO SCH (08:00)
[2019-09-04] MEDS: LOSARTAN POTASSIUM 25 MG TAB PO SCH (09:03)
[2019-09-04] MEDS: LORATADINE 10 MG TAB PO SCH (09:03)
[2019-09-04] MEDS: ATENOLOL 50 MG TAB PO SCH (09:03)
[2019-09-04] MEDS: ASPIRIN 325 MG TAB PO SCH (09:03)
[2019-09-04] MEDS: CLOPIDOGREL BISULFATE 75 MG TAB PO SCH (09:03)
--- NOTE | 2019-09-04 17:36 | NUR ---
Patient transferred to MS1 at this time, a/ox3, no resp distress.
--- NOTE | 2019-09-04 18:29 | NUR ---
Patient remains stable, IV in place, denies pain, had one episode of large loose stool, had shower today, no distress, in bed, call light within reach, will monitor.
--- NOTE | 2019-09-04 19:04 | NUR ---
PT IS RESTING IN BED. RESPIRATION IS EVEN AND UNLABORED, NO DISTRESS NOTED. BED IN THE LOWEST POSITION, LOCKED, BED ALARM ON, AND CALL LIGHT WITHIN REACH. WILL CONTINUE TO MONITOR.
[2019-09-04] MEDS: SERTRALINE HCL 50 MG TAB PO SCH (21:03)
[2019-09-04] MEDS: ATORVASTATIN 40 MG TAB PO SCH (21:03)
[2019-09-04] MEDS: LORAZEPAM 0.5 MG TAB PO PRN (23:23)
[2019-09-05] VITALS (8 sets, daily range): BP systolic 116–139; BP diastolic 54–65
[2019-09-05] MEDS: MEROPENEM 1GM 100 ML IV SCH ×2 (04:01→12:00)
[2019-09-05 06:13] LABS: ALANINE AMINOTRANSFERASE 13 IU/L (0-55); ALBUMIN 2.7 g/dL (3.5-5.0); ALBUMIN/GLOBULIN RATIO 0.8 (0.8-2.0); ALKALINE PHOSPHATASE 67 IU/L (40-150); ANION GAP 11.8 mmol/L (8-16); BLOOD UREA NITROGEN 19 mg/dL (7-26); BUN/CREATININE RATIO 19 (6-25); CALCIUM 8.4 mg/dL (8.4-10.2); CARBON DIOXIDE 25 mmol/L (22-29); CHLORIDE 106 mmol/L (98-107); CREATININE, SERUM 0.98 mg/dL (0.72-1.25); EST GLOMERULAR FILTRATION RATE > 60 ML/MIN (60-); GLUCOSE 88 mg/dL (74-118); POTASSIUM 3.8 mmol/L (3.5-5.1); SODIUM 139 mmol/L (136-145)
--- NOTE | 2019-09-05 07:25 | NUR ---
pt in bed resting ,denies pain,no distress noted.
[2019-09-05] MEDS: GLIMEPIRIDE 2 MG TAB PO SCH (08:00)
[2019-09-05] MEDS: METFORMIN HCL 750 MG TAB ER PO SCH ×2 (08:40→16:50)
[2019-09-05] MEDS: LORATADINE 10 MG TAB PO SCH (08:40)
[2019-09-05] MEDS: LOSARTAN POTASSIUM 25 MG TAB PO SCH (08:40)
[2019-09-05] MEDS: ASPIRIN 325 MG TAB PO SCH (08:40)
[2019-09-05] MEDS: CLOPIDOGREL BISULFATE 75 MG TAB PO SCH (08:40)
[2019-09-05] MEDS: ATENOLOL 50 MG TAB PO SCH (08:41)
--- NOTE | 2019-09-05 13:23 | NUR ---
GOT A CALL FROM [facility], NOT IN NETWORK, CALLED INSURANCE COMPANY AND THEY STATE TO LOOK UP FACILITIES ON LINE, IN NETWORK IS [facility], [facility], [facility] AND [facility], SPOKE WITH PT AND CALLED , SHE STATES [facility] AND HAVE CLOSE CONTACT WITH Vanessa YOUNG TO NAVIGATE ANY ISSUES. CONTACTED REP TO COME GET PACKET AND COMPLETED PASRR AND RTF
--- NOTE | 2019-09-05 13:58 | NUR ---
SPOKE WITH RAE AND PT, VERBAL VIA PHONE FOR [facility] FILLED OUT CHOICE FORM AND FILED IN CHART, UPDATED CLINICALS, PASRR AND RTF
--- NOTE | 2019-09-05 15:29 | NUR ---
EDUCATED ABOUT IMM, SIGNED, FILED IN CHART, WITH COPY LEFT WITH FAMILY AT BEDSIDE.
--- NOTE | 2019-09-05 15:57 | NUR ---
NOTIFIED DR OFFICE ABOUT INSURANCE AND WHO IS IN NETWORK. SPOKE WITH MICKY AT DR Vanessa YOUNG OFFICE. SHE STATED THAT HE IS IN CLINIC AND WILL PAGE HIM AND LET HIM KNOW ABOUT THE CHANGE
--- NOTE | 2019-09-05 17:54 | NUR ---
pt in bed resting ,denies pain.
--- NOTE | 2019-09-05 19:05 | NUR ---
Received report from day nurse. Patient is resting comfortably in bed. Bed is in lowest position and call davies is within reach. Will continue to monitor patient.
[2019-09-05] MEDS: ATORVASTATIN 40 MG TAB PO SCH (20:03)
[2019-09-05] MEDS: SERTRALINE HCL 50 MG TAB PO SCH (20:03)
[2019-09-05] MEDS: LORAZEPAM 0.5 MG TAB PO PRN (20:07)
[2019-09-06] VITALS (7 sets, daily range): BP systolic 133–182; BP diastolic 58–76
--- NOTE | 2019-09-06 06:56 | NUR ---
report given to day nurse. patient is resting comfortably in bed. bed is in lowest position and call light is within reach.
--- NOTE | 2019-09-06 07:30 | NUR ---
PT INBED SLEEPING NO DISTRESS NTOED DENIES PAIN
--- NOTE | 2019-09-06 07:37 | Discharge Summary ---
This is an 84-year-old male patient presented to the emergency room with altered mental status. Mr. Souza is an 84-year-old male patient with multiple comorbidities and the patient has prostate cancer, diabetes mellitus, hypertensive heart disease and cervical radiculopathy and anxiety, depression, and severe COPD. 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 HOSPITAL COURSE SUMMARY: The patient was admitted with above diagnosis. The patient was treated with IV antibiotics, IV Merrem and ID and Neurology consultation was requested and the patient's neuro status was monitored. The patient was also given physical therapy and occupational therapy and SNF evaluation was requested, as the patient's mental status remained very labile and the patient was in and out of confusion. Finally, got the insurance for the SNF placement. The patient will be discharged to [facility] for further continuation of care to finishing the IV antibiotic treatment and physical therapy and occupational therapy. MD GAYAL Piña/REBECCA /[id number]
[2019-09-06] MEDS: GLIMEPIRIDE 2 MG TAB PO SCH (08:00)
[2019-09-06] MEDS: METFORMIN HCL 750 MG TAB ER PO SCH ×2 (08:27→17:00)
[2019-09-06] MEDS: ASPIRIN 325 MG TAB PO SCH (08:30)
[2019-09-06] MEDS: LORATADINE 10 MG TAB PO SCH (08:30)
[2019-09-06] MEDS: CLOPIDOGREL BISULFATE 75 MG TAB PO SCH (08:30)
[2019-09-06] MEDS: LOSARTAN POTASSIUM 25 MG TAB PO SCH (08:30)
[2019-09-06] MEDS: ATENOLOL 50 MG TAB PO SCH (08:31)
--- NOTE | 2019-09-06 09:15 | NUR ---
CALLED AND STATES SHE TOURED [facility] LAST NIGHT AND WILL NOT BE TAKING HER TO [facility]. SHE STATES SHE SPOKE WITH THE INSURANCE AND WAS SWITCHED IN MID YEAR TO THE INTERGRANET AND IS UPSET BECAUSE THEY CANT GO WHERE THE DOCTOR RECOMMENDS. SHE STATES SHE IS WORKING ON GETTING IT CHANGED. BUT I MEAN TIME SHE WOULD RATHER TAKE HER HOME. NOTIFIED THE CM.
--- NOTE | 2019-09-06 09:33 | NUR ---
CALL TO PT'S @ [phone] TO DISCUSS DC PLANNING. NO ANSWER. CM LEFT VM W CONTACT INFO.
--- NOTE | 2019-09-06 09:36 | NUR ---
PER PACKAGING DESIGNER, THE WOULD LIKE TO TAKE THE PT HOME, BECAUSE SHE DID NOT LIKE ANY OF THE SNF'S IN HER PLAN'S NETWORK. CALL TO Kathe YOUNG'S OFFICE @ [phone]. SPOKE W WELDING MANAGER. SHE WILL LET THE DOC KNOW. WILL AWAIT FURTHER ORDERS.
--- NOTE | 2019-09-06 10:35 | NUR ---
CALL RECEIVED FROM MS. OROZCOMarco Antonio. STATES AFTER VISITING THE FACILITY SHE DID NOT FEEL IT WOULD WORK FOR HER . STATES HER DTR AND NEIGHBOR HELP OUT AND SHE HAS BEEN CARING FOR THE PT FOR A LONG TIME AND FEELS HE WOULD DO BETTER AT HOME. STATES SHE DID NOT FEEL SHE NEEDED HOME HEALTH AT THIS POINT. CM ENCOURAGED TO GET AN ORDER FROM HER PCP IF SHE FELT SHE NEEDED SOMEONE TO CHECK ON THEM IN THE FUTURE. STATES THE PT DOES WELL W HIS ROLLATOR IN THE HOME AND DID NOT NEED A WC OR ANY OTHER ASSISTIVE DEVICES AT THIS TIME. INFORMED THE CM CALLED DR. YOUNG, BUT NO RESPONSE HAD BEEN RECEIVED. INFORMED HER ABIEL OR MYSELF WILL CALL HER IF THE PT IS DISCHARGED. WILL AWAIT FURTHER ORDERS.
--- NOTE | 2019-09-06 11:26 | NUR ---
RECEIVED CALL FROM DR Vanessa YOUNG STATING HE SPOKE WITH THE MAJOR ACCOUNT REPRESENTATIVE AT [facility] AND THEY WILL DO A 1 TIME CONTRACT AT [facility]. CALLED AND SPOKE WITH ABDIFATAH Alaniz AT [facility] [phone] SHE STATES SHE WILL CONTACT DR PETERSON AND FAX ME THE FORM FOR THE 1 TIME CONTRACT TO SENT TO THE FACILITY. CONTACTED [facility] TO HAVE READY FOR FORM AND TO INITIATE THE REFERRAL
--- NOTE | 2019-09-06 11:28 | NUR ---
CALLED RAE AND UPDATED HER ON THE PROGRESS OF SITUATION.
--- NOTE | 2019-09-06 14:48 | NUR ---
RECEIVED FAX FROM INSURANCE AND FAXED IT AND CLINICALS TO FACILITY [phone],
--- NOTE | 2019-09-06 18:14 | NUR ---
PT UP IN BED ,DENIES PAIN ,NO DISTRESS NOTED,AWAITING APPROVAL FOR [facility]
--- NOTE | 2019-09-06 19:10 | NUR ---
Received change of shift report from AM nurse. Walking rounds completed.
[2019-09-06] MEDS: SERTRALINE HCL 50 MG TAB PO SCH (20:33)
[2019-09-06] MEDS: ATORVASTATIN 40 MG TAB PO SCH (20:33)
[2019-09-06] MEDS ORDERED: TEMAZEPAM 7.5 MG CAP PO PRN (21:15)
[2019-09-06] MEDS: TEMAZEPAM 15 MG CAP PO PRN (21:50)
[2019-09-07] VITALS (8 sets, daily range): BP systolic 109–166; BP diastolic 56–71
--- NOTE | 2019-09-07 | NUR ---
Patient requested meds for sleep. Called MD to get order. Meds given per MD order.
--- NOTE | 2019-09-07 04:48 | NUR ---
Patient resting quitly at this time. Continue monitor.
[2019-09-07] MEDS: CLONIDINE HCL 0.1 MG TAB PO PRN (06:33)
--- NOTE | 2019-09-07 07:16 | NUR ---
PATIENT IN BED RESTING WITH EYES CLOSED, NO RESPIRATORY DISTRESS OBSERVED. BED IN LOWER POSITION, CALL LIGHT AT REACH.
[2019-09-07] MEDS: GLIMEPIRIDE 2 MG TAB PO SCH (08:40)
[2019-09-07] MEDS: METFORMIN HCL 750 MG TAB ER PO SCH ×2 (08:40→17:13)
[2019-09-07] MEDS: ASPIRIN 325 MG TAB PO SCH (09:27)
[2019-09-07] MEDS: CLOPIDOGREL BISULFATE 75 MG TAB PO SCH (09:27)
[2019-09-07] MEDS: LORATADINE 10 MG TAB PO SCH (09:27)
[2019-09-07] MEDS: ATENOLOL 50 MG TAB PO SCH (09:28)
[2019-09-07] MEDS: LOSARTAN POTASSIUM 25 MG TAB PO SCH (09:28)
--- NOTE | 2019-09-07 11:30 | NUR ---
PATIENT EXERCISED IN ROOM WITH PHYSICAL THERAPY. REPOSITIONED IN BED WITH CALL LIGHT AT REACH.
--- NOTE | 2019-09-07 15:08 | NUR ---
PATIENT IN BED RESTING, DENIED PAIN.
--- NOTE | 2019-09-07 18:11 | NUR ---
Nutrition Screen Note RD Recommendation for Physician: -Continue regular diet Plan of Care: RD following, monitoring for tolerance and adequacy Nutrition reason for involvement: Length of stay Primary Diagnose(s): weakness, UTI PMH: diabetes, COPD, prostate cancer, osteoarthritis, hypertensive heart disease, recurrent UTI, depression, anxiety, appendectomy, cholecystectomy, and hip surgery Ht: 72 in Wt:167 lb BMI: 22.6 kg/m2 IBW:[address] Assessment: (09/07/19) Chart reviewed. Labs and meds reviewed. Pt is an 84 year old male admitted with weakness and UTI. Attempted to speak to pt, but unable to gather nutrition information from pt and no family members were at bedside. Therefore, information is obtained from chart and RN. Pt consumed 25-75% of meals today, 75-100% of meals yesterday, and 75% of meals on 09/05. Per wt history, pt weighed 184 lbs in May 2019. Pt currently has a wt of 167 lbs in chart. If accurate, this would be a 9% wt loss in 4 months severe wt loss. No N/V/D/C or chewing/swallowing issues reported by RN. Will continue to monitor. Current Diet: Regular Malnutrition Evaluation (09/07/19) The patient does not meet criteria for a specified degree of malnutrition at this time. Will re-evaluate at follow-up as appropriate. Diet Education Needs Assessment: Diet education not indicated. Nutrition Care Level: low Signed: Fe Sterling, RD, LD
[2019-09-07] MEDS: ATORVASTATIN 40 MG TAB PO SCH (20:12)
[2019-09-07] MEDS: SERTRALINE HCL 50 MG TAB PO SCH (20:12)
[2019-09-07] MEDS ORDERED: ONDANSETRON HCL INJ 2MG/ML 2ML 2 MG/ML VIAL IV PRN (21:00)
[2019-09-07] MEDS: TEMAZEPAM 15 MG CAP PO PRN (23:09)
[2019-09-08 00:25] VITALS: BP 110/60
[2019-09-08 05:23] VITALS: BP 140/62
--- NOTE | 2019-09-08 05:43 | Discharge Summary ---
ADDENDUM: The patient is waiting for the [facility] home approval. The patient remains unsafe to be going home for last two days. I had discharged the patient two days ago, but the patient is still waiting for the approval between the insurance company and the [facility], and it seems like today we will have approval for the patient to go to [facility] and the patient will be discharged to [facility] home today. MD GAYLA Piña/REBECCA /[id number]
[2019-09-08 07:10] VITALS: BP 142/65
--- NOTE | 2019-09-08 07:10 | NUR ---
PATIENT IN BED RESTING WITH NO S/S OF DISTRESS. URINAL EMPTIED AND CLEANSED. BED IN LOWER POSITION, CALL LIGHT AT REACH.
[2019-09-08 07:34] VITALS: BP 142/65
[2019-09-08] MEDS: GLIMEPIRIDE 2 MG TAB PO SCH (08:52)
[2019-09-08] MEDS: METFORMIN HCL 750 MG TAB ER PO SCH ×2 (08:52→17:24)
[2019-09-08] MEDS: ASPIRIN 325 MG TAB PO SCH (09:00)
[2019-09-08] MEDS: LORATADINE 10 MG TAB PO SCH (09:00)
[2019-09-08] MEDS: LOSARTAN POTASSIUM 25 MG TAB PO SCH (09:00)
[2019-09-08] MEDS: ATENOLOL 50 MG TAB PO SCH (09:00)
[2019-09-08] MEDS: CLOPIDOGREL BISULFATE 75 MG TAB PO SCH (09:00)
[2019-09-08] MEDS ORDERED: ACETAMINOPHEN 325 MG TAB PO PRN (10:15)
[2019-09-08 11:12] VITALS: BP 133/58
--- NOTE | 2019-09-08 11:25 | NUR ---
MD IN TO SEE PATIENT, NEW ORDER RECEIVED.
--- NOTE | 2019-09-08 12:06 | NUR ---
ROUNDS WITH DR Kathe YOUNG STILL WAITING FOR AUTH FOR [facility] FROM INSURANCE IF NO AUTH BY 2PM; OK FOR PT TO GO HOME WITH HOME HEALTH TODAY IF NOT ACCEPTED NURSE AWARE OF PLAN PT AGREEABLE WITH PLAN
--- NOTE | 2019-09-08 15:17 | NUR ---
PATIENT IS ABOUT TO BE DISCHARGED, CALLED AND NOTIFIED. SHE STATED THAT SHE WILL BE HERE LATER.
[2019-09-08 15:28] VITALS: BP 109/55
--- NOTE | 2019-09-08 16:30 | NUR ---
CM PLACED CALL TO ; RAE AT [phone]. NO ANSWER; VM LEFT. MET W THE PT AT THE BEDSIDE. STATES HE WOULD NEED TO DISCUSS HH OPTION W HIS . INFORMED PT I HAD SPOKEN W THE PREVIOUSLY AND SHE DID NOT WANT HH. INFORMED THE PT I HAD LEFT VM W THE AND WILL F/U ON TOMORROW IF NEEDED. PT VERBALIZED UNDERSTANDING. IMM LETTER EXPLAINED TO PT. PT VERBALIZED UNDERSTANDING. IMM LETTER SIGNED. COPY TO PT AND COPY TO CHART.
--- NOTE | 2019-09-08 16:45 | NUR ---
RECEIVED CALL BACK FROM PT'S . STATES SHE STILL DID NOT WANT HOME HEALTH. STATES IF NEEDED SHE WILL F/U W THE PCP. INFORMED I WILL F/U W HER ON TOMORROW TO SEE HOW THE DAY GOES FOR THEM. INFORMED THE I WOULD STILL BE ABLE TO ARRANGED HOME HEALTH IF SHE WOULD LIKE. VERBALIZED UNDERSTANDING. STATES SHE HAD A MEETING AT 12NOON TO CHANGE THEIR INSURER. AGREED TO SPEAK W THEM AROUND 2PM TOMORROW.
--- NOTE | 2019-09-08 18:00 | NUR ---
PATIENT DISCHARGED HOME. DISCHARGE INSTRUCTIONS AND FOLLOW UP GIVEN TO PATIENT AND , THEY VERBALIZED UNDERSTANDING. IV TO LEFT UPPER ARM REMOVED WITH TIP INTACT. ALL PERSONAL ITEMS TAKEN WITH PATIENT. LEFT UNIT PER WHEEL CHAIR TO FRONT LOBBY IN STABLE CONDITION.
== END 2019-09-08 18:00 | DRG 689 ==
LOC: ER 13:27 → ERHOLD 15:45 → IMCU 08-30 03:38 → OBSVTOIN 08-30 14:18 → MED/SURG 08-30 15:39 → MED/SURG3 09-01 17:10
PROVIDERS: ADMIT Internal Medicine; ATTEND Internal Medicine
DX: N39.0 Urinary tract infection, site not specified (principal); G93.41 Metabolic encephalopathy; J44.1 Chronic obstructive pulmonary disease with (acute) exacerbation; D72.1 Eosinophilia; E11.9 Type 2 diabetes mellitus without complications; J44.9 Chronic obstructive pulmonary disease, unspecified; Z85.46 Personal history of malignant neoplasm of prostate; M19.90 Unspecified osteoarthritis, unspecified site; I11.9 Hypertensive heart disease without heart failure; Z87.440 Personal history of urinary (tract) infections; R29.6 Repeated falls; N30.90 Cystitis, unspecified without hematuria; B96.89 Other specified bacterial agents as the cause of diseases classified elsewhere; M54.10 Radiculopathy, site unspecified; F41.9 Anxiety disorder, unspecified; F32.9 Major depressive disorder, single episode, unspecified
CPT/HCPCS: 36415; 36600; 70460; 71045; 80048; 80053; 81001; 82140; 82550; 82553; 82805; 82948; 84484; 85025; 85610; 85730; 86592; 87040; 87086; 93005; 97139; 99284; G0378; J2060; J2405; J7030; J7050; Q9967

== ENCOUNTER 2020-01-09 10:20 | Observation (INO) | payer MEDICARE ==
[~2020-01-09] VITALS: Ht 185.4 cm; Wt 75.7 kg
[~2020-01-09 10:20] MED LIST changes: +PROAIR HFA INH8.5 GM INH
[2020-01-09 11:07] LABS: BASOPHILS % 0.3 % (0.0-1.0); EOSINOPHILS # (AUTO) 0.3 (0.0-0.4); EOSINOPHILS % 2.7 % (0.0-6.0); HEMATOCRIT 34.6 % (38.2-49.6); HEMOGLOBIN 11.5 g/dL (14.0-18.0); LYMPHOCYTES # (AUTO) 1.3 (1.0-3.2); LYMPHOCYTES % 10.8 % (18.0-39.1); MEAN CORPUSCULAR HEMOGLOBIN 27.6 pg (28-32); MEAN CORPUSCULAR HGB CONC 33.2 g/dL (31-35); MONOCYTES # (AUTO) 0.9 (0.2-0.8); MONOCYTES % 7.3 % (4.4-11.3); NEUTROPHILS # (AUTO) 9.3 (2.1-6.9); NEUTROPHILS % 78.6 % (38.7-80.0); PLATELET COUNT 392 x10e3/uL (140-360); RED BLOOD COUNT 4.17 x10e6/uL (4.3-5.7); RED CELL DISTRIBUTION WIDTH 14.4 % (11.7-14.4)
[2020-01-09 11:16] LABS: BILIRUBIN,URINE NEGATIVE (NEGATIVE); CLARITY,URINE SL CLOUDY (CLEAR); COLOR,URINE YELLOW (YELLOW); KETONES,URINE NEGATIVE (NEGATIVE); LEUKOCYTE ESTERASE ,URINE NEGATIVE (NEGATIVE); NITRITE,URINE NEGATIVE (NEGATIVE); PROTEIN,URINE DIPSTICK NEGATIVE (NEGATIVE); URINE UROBILINOGEN 0.2 mg/dL (0.2 - 1)
[2020-01-09 11:19] LABS: EPITHELIAL CELLS,URINE FEW /LPF; MUCUS,URINE FEW (RARE)
[2020-01-09 11:26] LABS: INR 1.03; PROTHROMBIN TIME 14.1 seconds (11.9-14.5)
[2020-01-09 11:27] LABS: ALANINE AMINOTRANSFERASE 14 IU/L (0-55); ALBUMIN 2.5 g/dL (3.5-5.0); ALBUMIN/GLOBULIN RATIO 0.6 (0.8-2.0); ALKALINE PHOSPHATASE 69 IU/L (40-150); ANION GAP 14.3 mmol/L (8-16); BLOOD UREA NITROGEN 28 mg/dL (7-26); BUN/CREATININE RATIO 33 (6-25); CALCIUM 9.1 mg/dL (8.4-10.2); CARBON DIOXIDE 23 mmol/L (22-29); CHLORIDE 102 mmol/L (98-107); CREATINE KINASE 307 IU/L (30-200); CREATININE, SERUM 0.85 mg/dL (0.72-1.25); EST GLOMERULAR FILTRATION RATE > 60 ML/MIN (60-); GLUCOSE 76 mg/dL (74-118); PARTIAL THROMBOPLASTIN TIME 41.8 seconds (23.8-35.5); POTASSIUM 4.3 mmol/L (3.5-5.1); SODIUM 135 mmol/L (136-145)
--- NOTE | 2020-01-09 12:10 | Diagnostic Imaging Report ---
EXAMINATION: CHEST SINGLE (PORTABLE) INDICATION: Altered mental status COMPARISON: Chest radiograph 08/29/2019 FINDINGS: LINES/TUBES:EKG leads overlie the chest. LUNGS:The lungs are mildly hyperinflated. No focal consolidation. Bibasilar subsegmental atelectasis. PLEURA:No pleural effusion or pneumothorax. MEDIASTINUM:The cardiomediastinal silhouette appears unchanged in size and shape. Atherosclerotic calcifications of the thoracic aorta. BONES/SOFT TISSUES:No acute osseous injury. Old healed left posterior rib fractures. ABDOMEN:No free air under the diaphragm. IMPRESSION: Bibasilar subsegmental atelectasis. No focal consolidation. Signed by: Leticia Zepeda MD on 01/09/2020 12:07 PM
--- NOTE | 2020-01-09 12:23 | Diagnostic Imaging Report ---
EXAMINATION: Head CT HISTORY: Alteration of consciousness, hypoglycemia COMPARISON: Head CT 08/29/2019 TECHNIQUE: Helical axial images of the head were obtained. Reformatted coronal and sagittal images from the axial data. Dose modulation, iterative reconstruction, and/or weight based adjustment of the mA/kV was utilized to reduce the radiation dose to as low as reasonably achievable. Image quality: Motion/streaking artifact limits the evaluation of the skull base and posterior cranial fossa. FINDINGS: Parenchyma: 1. Mild to moderate confluent periventricular and heard radiata white matter hypodensities, most likely nonspecific chronic microvascular ischemic changes, unchanged compared to head CT of 08/29/2019. 2. No mass or hemorrhage. No CT evidence of acute territorial vascular insult. Extra-axial spaces:No abnormal density. No extra-axial fluid collections Brain volume: Mild generalized brain volume loss. Ventricles: No hydrocephalus or displacement. Arteries: No density suggestive of thrombus. Dural sinuses: No abnormal density. Foramen magnum: No mass, Chiari malformation, or basilar invagination. Sella: No obvious mass. Paranasal/mastoid sinuses: Imaged portions unremarkable. Skull/Scalp: No lytic or blastic lesions. No fractures. IMPRESSION: 1. No acute intracranial hemorrhage or cortical infarcts. 2. Persistent mild to moderate chronic microvascular ischemic changes. Signed by: Dr. Jory Martinez M.D. on 01/09/2020 12:20 PM
--- NOTE | 2020-01-09 14:24 | NUR ---
CALLED EMS FOR TRANSPORT
[2020-01-09] MEDS ORDERED: TRAMADOL HCL 50 MG TAB PO PRN (17:30)
[2020-01-09] MEDS ORDERED: ALBUTEROL SULFATE HFA 8GM INHALATION AEROSOL INH PRN (17:30)
[2020-01-09] MEDS ORDERED: GLUCAGON FOR INJ 1 MG VIAL IM ONE (17:45)
--- NOTE | 2020-01-09 18:43 | History and Physical ---
HISTORY OF PRESENT ILLNESS: He is an 84-year-old male, patient of mine, presented to the emergency room with a complaint of, the reported that the patient was getting very stiff and had altered mental status. The patient was brought to the emergency room and the patient has an emergency CT head was done, which showed no acute infarct and chronic persistent microvascular changes. The patient's blood sugar was only 30. The patient has a bilateral on chest x-ray basal atelectasis. After the sugar treatment, the patient had improved and not verbalizing any physical complaint, but the patient is profoundly weak and unable to care for himself. ALLERGIES: THE PATIENT IS ALLERGIC TO LISINOPRIL, SHELLFISH, AND JANUVIA. OTHER SIGNIFICANT MEDICAL HISTORY: The patient had recently multiple admissions with altered mental status and metabolic encephalopathy. The patient with diabetes mellitus, COPD, prostate cancer, metastasis to the bone. Osteoarthritis, hypertensive heart disease, recurrent UTI and depression, and anxiety. PAST SURGICAL HISTORY: Appendectomy, cholecystectomy, and hip surgery. SOCIAL HISTORY: Denies smoking. Denies using alcohol. REVIEW OF SYSTEMS: A detailed multisystem review of system examination done, but the patient was not much compliant and not able to give detailed history. PHYSICAL EXAMINATION: VITAL SIGNS: Temperature 98, pulse rate 110, respiration rate 20, blood pressure 110/66. GENERAL: The patient is alert, awake, and oriented. Not in any acute distress. HEENT: Normocephalic, atraumatic. NECK: No JVD. No lymphadenopathy. LUNGS: Bilateral equal fair air entry with basal rales occasionally present. HEART: S1, S2. Regular. Systolic murmur present. No gallop. ABDOMEN: Soft. Bowel sounds are present. No tenderness. NEUROLOGIC: No focal neuro tenderness. ADMITTING IMPRESSION AND DIAGNOSES: Acute altered mental status, secondary to metabolic encephalopathy, secondary to hypoglycemia while the patient is on sulfonylurea. PLAN: The patient will be admitted with above diagnosis. We will do serial Accu-Cheks and monitor patient's blood sugar. We will give the patient D5 drip. We will also consult Case Management, social professionals for placement. We will do PT, OT evaluation. Regulo Lyn MD VMP/MODL /[id number]
--- NOTE | 2020-01-09 19:00 | NUR ---
RECEIVED PATIENT IN BEDSIDE SHIFT REPORT. PATIENT RESTING IN BED AT THIS TIME. A&OX3 WITH PERIODS OF CONFUSION. NO PAIN REPORTED. NO S&S OF DISTRESS NOTED. AARON DRAINING TO GRAVITY, OFF OF FLOOR, CLEAR, YELLOW URINE NOTED. BED ALARM ON, BED LOCKED IN LOWEST POSITION, SIDE RAILS UPX2, CALL LIGHT IN REACH.
[2020-01-09 20:00] VITALS: BP 122/59
[2020-01-09] MEDS ORDERED: ATORVASTATIN 40 MG TAB PO SCH (21:00)
[2020-01-09] MEDS ORDERED: SERTRALINE HCL 50 MG TAB PO SCH (21:00)
[2020-01-09] MEDS ORDERED: TEMAZEPAM 15 MG CAP PO SCH (21:00)
[2020-01-09] MEDS ORDERED: ATORVASTATIN 20 MG TAB PO SCH (21:00)
[2020-01-09 21:24] VITALS: BP 122/59
--- NOTE | 2020-01-09 23:33 | Diagnostic Imaging Report ---
EXAMINATION: CHEST XRAY LINE PLACEMENT INDICATION: CONFIRM PICC PLACEMENT COMPARISON: Chest radiograph 01/09/2020. FINDINGS: TUBES and LINES: Right-sided PICC terminates in the expected location of the upper SVC. LUNGS: Low lung volumes on the left. Bibasilar opacities, likely atelectasis. No new consolidation or evidence of pulmonary edema. PLEURA: No pleural effusion or pneumothorax. HEART AND MEDIASTINUM: The cardiomediastinal silhouette is unremarkable. BONES AND SOFT TISSUES: No acute osseous lesion. Soft tissues are unremarkable. UPPER ABDOMEN: No free air under the diaphragm. There are cholecystectomy clips. IMPRESSION: Right-sided PICC terminates in the SVC. No evidence of pneumothorax. Signed by: Dr. Manohar Jolley MD on 01/09/2020 11:30 PM
[2020-01-10] VITALS (8 sets, daily range): BP systolic 82–126; BP diastolic 57–82
--- NOTE | 2020-01-10 06:42 | NUR ---
Received bedside shift report from off going nurse. Patient is resting in bed, no s/s of distress noted. Call light within reach. Bed in the lowest position. Bed alarm on.
--- NOTE | 2020-01-10 07:08 | NUR ---
REPORT GIVEN TO ONCOMING NURSE. AAOX3. R UPPER ARM PICC LINE WITH NO SIGNS OF INFILTRATION. BED LOCKED AND IN LOW POSITION. RESTING IN SEMI FOWLERS POSITION. BED ALARM ON, CALL LIGHT WITHIN REACH.
[2020-01-10] MEDS ORDERED: LOSARTAN POTASSIUM 25 MG TAB PO SCH (09:00)
[2020-01-10] MEDS ORDERED: ASPIRIN 325 MG TAB PO SCH (09:00)
[2020-01-10] MEDS ORDERED: CLOPIDOGREL BISULFATE 75 MG TAB PO SCH (09:00)
[2020-01-10] MEDS ORDERED: ATENOLOL 50 MG TAB PO SCH (09:00)
[2020-01-10] MEDS ORDERED: ATENOLOL 100 MG TAB PO SCH (09:00)
[2020-01-10] MEDS ORDERED: LORATADINE 10 MG TAB PO SCH (09:00)
--- NOTE | 2020-01-10 09:05 | NUR ---
SPOKE WITH RAE, GAVE HER OPTIONS IN NETWORK WITH INSURANCE FOR SNF, [employer] MEDICARE [facility] [address] [place], [place] [id number] Alanna Laurent [facility] [address] [place] [address] [facility] [address] [place] [address] [facility] [address] [place], [place] [id number] [facility] [address] [place] [address] [facility] [address] [place], [place] [id number] [place] [address] [address] [place], [place] [id number] [facility] [address] [place] [address] SHE IS NOT HAPPY WITH ANY OF THE CHOICES, STATES IF THEY ARE ABLE TO GET HIS BLOOD SUGAR UNDER CONTROL SHE WANTS TO TAKE HOME. SPOKE WITH HER ABOUT HOME HEALTH AND SHE STATES SHE KNOWS ITS AN OPTION BUT IS UNSURE IF SHE WANTS ANYONE COMING INTO THE HOME, STATES WILL THINK ABOUT IT BUT WITH THE COVID DOESN'T WANT TO MAKE A DECISION AT THIS TIME. MAY NEED A WHEELCHAIR UPON DISCHARGE STATES HAS A ROLLATOR AND A BEDSIDE COMMODE.
--- NOTE | 2020-01-10 10:20 | NUR ---
Discontinued dukes with tip intact, patient tolerated it well. Patient DTV [id number].
[2020-01-10] MEDS ORDERED: LEVALBUTEROL HCL SOLN NEBU 0.63 MG/3 ML NEB INH PRN (10:45)
--- NOTE | 2020-01-10 11:04 | NUR ---
SPOKE WITH MD, OBTAINED SIGNED ORDER FOR PROCESSING, SPOKE WITH AND SHE CHOSE [facility] FOR WHEELCHAIR DME. CONTACTED REP AND WILL GET DELIVERED.
--- NOTE | 2020-01-10 12:41 | Discharge Summary ---
An 84-year-old male patient admitted under observation for low blood sugar and altered mental status. ADMITTING IMPRESSION AND DIAGNOSES: Hypoglycemia while the patient is on sulfonylurea and altered mental status secondary to hypoglycemia. The patient has a severe profound deconditioning and the patient with metastatic prostate cancer with mets to the bone and the patient has COPD, diabetes mellitus, hypertension, hypertensive heart disease, severe generalized weakness and deconditioning. HOSPITAL COURSE SUMMARY: The patient was admitted with above diagnoses and observation. The patient was given IV D5 and the patient's blood sugar was monitored. The patient was given physical therapy, occupational therapy and nebulizer treatment. Upon discharge, case management, criminal justice social worker and the patient involved and options were given for the patient with nursing home home or home health and provider. And with current viral epidemic, the patient's refused to take the patient home and she does not want to take him to nursing home right now as well as have anybody come to her house. The patient was given a new prescription for glucometer and test strips and wheelchair. MD GAYLA Piña/MODL /[id number]
--- NOTE | 2020-01-10 13:56 | NUR ---
Patient had one wet diaper, bladder scanner noted 0 mL at this time.
--- NOTE | 2020-01-10 13:56 | NUR ---
WOUND CARE CONSULT FOR 84 YO MALE HX OF HYPOGLYCEMIA FILIBERTO 13 ON MODERATE PUP STATUS AND INTERVENTIONS AND ALTERNATING MATTRESS LABS: WBC-11.83 [id number]_[id number] SKIN ASSESSMENT COMPLETE PATIENT PRESENTS WITH STAGE 2 BLISTER TO LEFT HEEL MEASURES 3.5CMX 4CM FLUID FILLED PINK DTI RIGHT HEEL MEASURES 3CM X2.5CM DARK BLUISH BLISTER DTI LOWER BACK MEASURES 8CM X3CM DARK BLUISH DTI SACRUM .5CM X.5CM SMALL BLUISH AREA SURROUNDED BY NON BLANCHABLE REDNESS RECOMMENDATIONS: NURSING TO CONTINUE TO MAINTAIN MODERATE PUP STATUS AND INTERVENTIONS AND ALTERNATING PRESSURE MATTRESS NURSING TO CONTINUE TO ASSIST PATIENT OUT OF BED FOR MEALS AND MUCH TOLERATED NURSING TO CONTINUE TO ASSIST PATIENT NEEDED WITH MEALS AND NUTRITIONAL SUPPLEMENTS TO ENSURE PROPER REQUIREMENTS FOR HEALING NURSING TO CONTINUE TO OFFLOAD FEET AND HEELS NEEDED WITH PILLOW SUSPENSION WHEN IN BED NURSING TO CLEAN STAGE 2 BLISTER TO LEFT HEEL WITH NORMAL SALINE DAILY AND APPLY VENELEX OINTMENT AND ALLEVYN FOAM DRESSING NURSING TO CLEAN DTI RIGHT HEEL WITH NORMAL SALINE DAILY AND APPLY VENELEX OINTMENT AND ALLEVYN FOAM DRESSING NURSING TO CLEAN DTI LOWER BACK WITH NORMAL SALINE DAILY AND APPLY VENELEX OINTMENT AND ALLEVYN FOAM DRESSING NURSING TO CLEAN DTI SACRUM WITH NORMAL SALINE DAILY AND APPLY VENELEX OINTMENT AND ALLEVYN FOAM DRESSING Addendum: 01/10/20 at 1407 by Carlo Rubio RN Amended: Links added.
[2020-01-10] MEDS ORDERED: BALSAM PERU/CASTOR OIL 60 GM OINT...G. TP SCH (16:00)
--- NOTE | 2020-01-10 17:14 | NUR ---
Received discharge order from Dr. Vanessa hager, patient is in stable condition. MD spoke to over the phone earlier today. Patient is being discharge home. Called to notify patient was being discharged and to obtain telephone consent for discharge with another nurse in unit. PICC line to right upper arm discontinued with tip intact, pressure dressing applied to site. Patient to be transported via EMS home. All paperwork with prescriptions inside discharge folder, DNR paperwork from home in folder, ID card and insurance card inside discharge folder. Discharge folder given to EMS personnel. All personal items taken by EMS.
== END 2020-01-10 17:14 | disposition home or self-care (01) ==
LOC: ER 10:20 → ERHOLD 16:20 → MED/SURG3 18:28
PROVIDERS: ADMIT Internal Medicine; ATTEND Internal Medicine
DX: E11.649 Type 2 diabetes mellitus with hypoglycemia without coma (principal); G93.41 Metabolic encephalopathy; J98.11 Atelectasis; Z88.8 Allergy status to other drugs, medicaments and biological substances; Z91.013 Allergy to seafood; R53.81 Other malaise; C61 Malignant neoplasm of prostate; C79.51 Secondary malignant neoplasm of bone; J44.9 Chronic obstructive pulmonary disease, unspecified; I11.9 Hypertensive heart disease without heart failure; R53.1 Weakness; Z79.82 Long term (current) use of aspirin
CPT/HCPCS: 36415 ×2; 36569 ×2; 51700; 70450; 71045; 80053; 81001; 82550; 82553; 82948 ×2; 84484; 85025; 85610; 85730; 87086; 93005; 94640; 97139; 97161; 97530; 97602; 99285; G0378 ×2; 99251